=== PATIENT | male | born 1985 | race Hispanic/Latino ===

== ENCOUNTER 2020-04-03 08:52 | Outpatient (NON) | payer OTHER, SELFPAY ==
[2020-04-04 14:04] LABS: SARS-CoV-2 RNA PCR Positive
== END 2020-04-03 08:53 ==
LOC: ANHCOVIDDT 08:55
PROVIDERS: Visit Provider Family Medicine
DX: U07.1 COVID-19 (principal)
CPT/HCPCS: 87635; C9803; U0003

== ENCOUNTER 2021-12-19 08:54 | Emergency (ER) | payer BC, SELFPAY ==
--- NOTE | ~2021-12-19 | XR_ITS ---
EXAMINATION: XR chest 2V 12/19/2021 09:45 INDICATION: Right-sided chest pain. History of hypertension. Liver and colon metastases. PROCEDURE: 2 view chest COMPARISON: 03/14/2016 FINDINGS: The lungs are clear. The cardiomediastinal silhouette is within normal limits. There are no pleural effusions. There is no pneumothorax suspected. Port catheter tip in the SVC. Left basila r atelectasis. IMPRESSION: 1: Left basilar atelectasis. Reviewed, dictated and finalized at location A.
--- NOTE | ~2021-12-19 | CT_ITS ---
EXAMINATION: CTA chest PE abdomen pel DATE: 12/19/2021 11:29 INDICATION: Dyspnea. Right flank pain. TECHNIQUE: Computed tomography angiography (CTA) of the chest was performed with 100 mL Omnipaque-350 intravenous contrast timed to evaluate the pulmonary arteries. Coronal maximum intensity projection 3D-reconstructions were created by the technologist. Computed tomography (CT) of the abdomen and pelv is was performed with intravenous contrast. Automated exposure control and iterative reconstruction t echnique were employed. The dose-length product was 2068.64 mGy-cm. COMPARISON: PET/CT 01/06/2017 FINDINGS: CTA chest: The lungs demonstrate mild atelectasis. No pleural effusion. The heart size is normal. No pericardial effusion. There is no pulmonary embolus. There is mild thoracic spondylosis. There is a l eft subclavian port with tip at superior cavoatrial junction. There is mild thoracic spondylosis. CT abdomen and pelvis: There are approximately 3 masses in the liver. A mass in left hepatic lobe ext ends into the anterior chest wall. There are areas of hyperattenuation in the masses, likely changes of chemoembolization. There is a 10 x 12 mm mass abutting the anteroinferior pericardium that is cont iguous with a mass in left hepatic lobe. The spleen, pancreas, adrenal glands, and kidneys are normal . The gallbladder is absent. There is a ventral hernia containing nonobstructed small bowel. There is an anastomosis in the rectosigmoid. There are other staple lines in bowel. There is wall thickening of the hepatic flexure of the colon abutting the mass in left hepatic lobe. There are no dilated loop s of bowel. The appendix is not visualized. There is prominent fat in the inguinal canals that may be hernias. There are no pathologically enlarged lymph nodes. There is no free intraperitoneal fluid. T here is mild lumbar spondylosis. IMPRESSION: 1. No pulmonary embolus. 2. Liver masses with extension to the pericardium, anterior chest wall, and hepatic flexure of the co lisa, consistent with metastatic disease, worsened from 01/06/17. 3. Ventral hernia containing nonobstructed small bowel. Reviewed, dictated and finalized at location A. IMPRESSION: 1. No pulmonary embolus. 2. Liver masses with extension to the pericardium, anterior chest wall, and hep atic flexure of the colon, consistent with metastatic disease, worsened from . 3. Ventral hernia containing nonobstructed small bowel.
[2021-12-19 09:01] VITALS: BP 151/109; PULSE 78; RESP 20; TEMP 36.4; O2SAT 100
--- NOTE | 2021-12-19 09:15 | ED.BACK ---
HPI - Back Pain/Injury General Chief Complaint: Back Pain/Injury Stated Complaint: right flank pain Time Seen by Provider: 12/19/21 08:58 Source: RN notes reviewed History of Present Illness HPI Narrative: Patient presents emergency room from home for right flank pain. Patient states symptoms been ongoing for the past week and a half. The pain is located in the right mid back and radiates around into the abdomen pain described as aching in nature states is worse when he lays down flat. States he has mild pain at this time not taking medication for his pain he denies any fevers or chills chest pain or shortness of breath he denies any nausea vomiting diarrhea. Patient states the pain will radiate around into the right upper and mid abdomen and the right lower quadrant Related Data Allergies Allergy/AdvReac Type Severity Reaction Status Date / Time mercury (elemental) Allergy Mild Rash Verified 12/19/21 09:07 adhesive Allergy Unknown Rash Verified 12/19/21 09:07 empagliflozin AdvReac Intermediate headache Verified 12/19/21 09:07 [From Jardiance] Review of Systems Review of Systems: Gen.: Denies fevers or chills ENT: Denies congestion Respiratory: Denies shortness of breath or cough CV: Denies chest pain or palpitations G see HPI denies burning, urgency, frequency or hematuria Musculoskeletal: D reports right flank pain Neuro: Denies numbness, tingling, weakness or focal weakness Skin: Denies rash Except as documented, all other systems reviewed and negative PMFSH Past Medical History Medical History Benign reactive hypertension Colon cancer Diabetes mellitus with hyperglycemia Liver metastases Mixed hyperlipidemia Morbid exogenous obesity Surgical History Surgical History H/O partial resection of colon Family History Family History Grandparent Diabetes mellitus Carcinoma of colon Mother Family history of elevated blood lipids Patient's mother is in good health Father Patient's father is in good health Social History Social History Social History: Smoking status: Never smoker Second hand tobacco smoke exposure: No Alcohol intake: never Substance use: never Substance use type: does not use Gender identity (if verbalized by the patient): Male Sexual Orientation (if Verbalized by the Patient): Lesbian, Abraham, or Homosexual Exam Narrative: APPEARANCE: No acute distress, nontoxic, resting in bed EYES: EOMI HEENT: Normocephalic, atraumatic, OMM RESPIRATORY: No respiratory distress Clear to auscultation bilaterally with no rhonchi wheezing or rales. CARDIOVASCULAR: Regular rate and rhythm without murmurs rubs or gallops. ABDOMINAL: Soft, nontender, nondistended, no rebound or guarding MUSCULOSKELETAl: Moves all extremities. No clubbing, cyanosis or edema. Back: No midline thoracic or lumbar tenderness palpation temporal patient no right paravertebral muscles T12-L2 NEURO: Awake and alert. Following commands, speech normal, no focal deficits SKIN:: Warm, dry. No rashes lesions or abrasions PSYCHIATRIC: Normal affect/mood, Course Course Emergency Course: Patient had a CT scan from the end of November on his phone I reviewed those results with Dr. Posada results are unchanged today Discussed with patient results of workup and diagnosis. Discussed need for follow-up with primary care, proper use of medication, and reasons to return to the emergency department. Patient understands and agrees to current treatment plan Vital Signs Vital signs: Vital Signs Temperature 97.6 F 12/19/21 09:01 Pulse Rate 78 12/19/21 09:01 Respiratory Rate 20 12/19/21 09:01 Blood Pressure 151/109 H 12/19/21 09:01 Pulse Oximetry 100 12/19/21 09:01 Oxygen Delivery Room Air 12/19/21
[2021-12-19 09:39] LABS: Basophils Absolute Auto 0.1 K/mm3 (0.0-0.1); Basophils Percent Auto 1.8 % (0.2-1.2); Eosinophils Absolute Auto 0.2 K/mm3 (0-0.3); Eosinophils Percent Auto 4.7 % (0-4.4); Hematocrit 40.7 % (42.0-52.0); Hemoglobin 13.4 g/dL (14.0-18.0); Immature Granulocyte Absolute 0.02 K/mm3 (0.00-0.031); Immature Granulocyte Percent A 0.4 % (0-0.5); Lymphocytes Absolute Auto 1.16 K/mm3 (0.9-3.2); Lymphocytes Percent Auto 22.9 % (18.3-44.2); Mean Corpuscular HGB Conc 32.9 g/dl (32-36); Mean Corpuscular Hemoglobin 31.6 pg (26-34); Monocytes Absolute Auto 0.6 K/mm3 (0.1-0.6); Neutrophils Percent Auto 59.2 % (45.5-73.1); Platelet Count Result 174 k/mm3 (150-375); Red Blood Count 4.24 M/mm3 (4.6-6.20); Red Cell Distribution Width 14.6 % (11.5-14.5); White Blood Count 5.1 K/mm3 (4.5-10.0)
[2021-12-19 09:47] LABS: Alanine Aminotransferase 53 U/L (6-50); Alkaline Phosphatase 56 U/L (38-126); Anion Gap 9 mmol/L (8-16); Aspartate Amino Transferase 36 U/L (17-59); Bilirubin,Total 0.6 mg/dL (0.2-1.3); Blood Urea Nitrogen 14 mg/dL (9-20); Calcium 9.3 mg/dL (8.4-10.2); Carbon Dioxide 28 mmol/L (22-30); Chloride 101 mmol/L (98-107); Estimated CRCL calculation 142 ml/min; Estimated Glomerular Filt Rate > 60; Glucose 177 mg/dL (65-110); Lipase 147 U/L (23-300); Potassium 4.1 mmol/L (3.4-5.0); Sodium 138 mmol/L (137-145)
[2021-12-19 10:14] LABS: Prothrombin Time 13.2 Seconds (11.1-14.7)
[2021-12-19 10:15] LABS: Partial Thromboplastin Time 28.8 SECONDS (22.3-36.8)
[2021-12-19] MEDS: SODIUM CHLORIDE 0.9% IV 1,000 ML 999 ML IV CONT (10:18)
[2021-12-19] MEDS: KETOROLAC 30 MG/ML VIAL (*BKC) IV PUSH (10:18)
[2021-12-19 10:39] VITALS: BP 162/110; PULSE 65; RESP 18; O2SAT 100
[2021-12-19 10:40] LABS: Add Urine Microscopic? YES; Appearance Urine Clear (Clear); Bilirubin Urine 1+ (Negative); Blood Urine Negative (Negative); Color Urine Yellow (Yellow); Glucose Urine UA Negative (Negative); Ketones Urine Negative (Negative); Leukocyte Esterase Ur Negative LEU/UL (Negative); Nitrate Urine Negative (Negative); Protein Urine 1+ mg/dL (Negative); Specific Grav Ur >= 1.030 (1.001-1.035); pH Urine 5.5 (5.0-9.0)
[2021-12-19 10:46] LABS: Mucus Urine Few /lpf; RBC Urine 0-2 /hpf (0-2)
[2021-12-19 13:05] VITALS: BP 154/106; PULSE 81; RESP 20; O2SAT 100
== END 2021-12-19 13:07 | disposition home or self-care (01) ==
PROVIDERS: Emergency Provider Emergency Medicine; PCP Family Medicine
DX: M54.50 Low back pain, unspecified (principal); E11.9 Type 2 diabetes mellitus without complications; E78.5 Hyperlipidemia, unspecified; Z85.038 Personal history of other malignant neoplasm of large intestine; R16.0 Hepatomegaly, not elsewhere classified
CPT/HCPCS: 36415; 71046; 71275; 74177; 80053; 81001; 83690; 85025; 85610; 85730; 96361; 96374; 99284; J1885; J7030; Q9967

== ENCOUNTER 2022-01-30 00:04 | Inpatient (IN) | payer BC, SELFPAY ==
[2022-01-30] VITALS (19 sets, daily range): BP systolic 119–146; BP diastolic 88–109; PULSE 84–133; RESP 14–20; TEMP 36.5–36.9; O2SAT 93–100; BMI 30.1
--- NOTE | ~2022-01-30 | CT_ITS ---
EXAMINATION: CT abdomen pelvis w con DATE: 01/30/2022 05:58 INDICATION: Abdominal pain TECHNIQUE: Computed tomography (CT) of the abdomen and pelvis was performed with 100 mL Omnipaque-350 intravenous contrast. Automated exposure control and iterative reconstruction technique were employe d. The dose-length product was 1278.43 mGy-cm. COMPARISON: 12/19/2021 FINDINGS: Central venous catheter with distal tip at the superior cavoatrial junction. Lung bases are clear. He art size is normal. No pleural effusion. There is a hypoenhancing mass occupying the majority of the small lateral segment of the left hepatic lobe which invades the subxiphoid anterior chest wall, infe rior pericardium and the immediately adjacent hepatic flexure the colon. There is high attenuation ma terial scattered within the mass consistent with likely change of prior chemoembolization. There is a dditional high attenuation likely chemoembolization material within and along the periphery of an add itional 2.2 cm otherwise fluid attenuation mass in segment 5 of the liver. There has been interval in crease in size of 3 intervening hypoenhancing and likely metastatic masses with ill-defined margins l ocated in segment 4A and 4B of the liver. For reference the most posterior has increased from approxi mately 2.2 x 2.0 cm to currently measuring 3.0 x 2.5 cm. Decompressed gallbladder is normal. Tiny spl enic calcification consistent with old granulomatous disease. Pancreas, bilateral adrenal glands and kidneys are normal. There are 3 anastomotic suture lines along the stool filled colon. There are 2 ad ditional anastomotic suture lines along the small bowel. Again seen is herniation of a loop of small bowel into a moderate-sized ventral hernia. There is fluid filling but not frankly dilated small janessa l within and proximal to the ventral hernia. There is a transition point upon the small bowel exiting the hernia with the more distal small bowel decompressed. Bladder is normal. Increased fat within th e bilateral inguinal canals which could be related to body habitus or small inguinal hernias. No free intraperitoneal gas or fluid. No pathologically enlarged abdominal or pelvic lymphadenopathy. Mild t horacic and lumbar spondylosis. No suspicious lytic or blastic bone lesions. IMPRESSION: 1. Large ventral hernia containing a loop of fluid-filled small bowel with fluid filling the more pro ximal small bowel but decompressed bowel distal to the hernia. The fluid-filled bowel is however not frankly dilated. Pattern suggests either an early or partial small bowel obstruction. 2. Multiple hypoenhancing hepatic masses consistent with metastatic disease the largest filling the l ateral segment of the left hepatic lobe which demonstrates change of prior chemoembolization invades the anterior abdominal wall, also involving the pericardium and hepatic flexure the colon. There has been interval increase in size of 3 of the mass without change of chemoembolization consistent with p rogression of likely metastatic disease. Reviewed, dictated and finalized at location A. IMPRESSION: 1. Large ventral hernia containing a loop of fluid-filled small bowel with flui d filling the more proximal small bowel but decompressed bowel distal to the he rnia. The fluid-filled bowel is however not frankly dilated. Pattern suggests e ither an early or partial small bowel obstruction. 2. Multiple hypoenhancing hepatic masses consistent with metastatic disease the largest filling the lateral segment of the left hepatic lobe which demonstrate s change of prior chemoembolization invades the anterior abdominal wall, also i nvolving the pericardium and hepatic flexure the colon. There has been interval increase in size of 3 of the mass without change of chemoembolizati
--- NOTE | ~2022-01-30 | XR_ITS ---
XR abdomen NG/feed tube insert INDICATION: Evaluate NG tube position. TECHNIQUE: Limited KUB perform for evaluating NG tube . COMPARISON: 02/03/2022 FINDINGS: NG tube tip in the stomach. There are dilated small bowel loops, consistent with obstructio n.. IMPRESSION: 1: NG tube tip in the stomach. 2: Small bowel obstruction. Reviewed, dictated and finalized at location A.
--- NOTE | ~2022-01-30 | XR_ITS ---
EXAMINATION: XR sm bowel follow through WS DATE: 02/06/2022 14:38 INDICATION: Vomiting. TECHNIQUE: Oral contrast was administered, and a time course of radiographs of the abdomen was obtain ed. Fluoroscopy of the small bowel was not performed. Fluoroscopy exposure time was 0 minutes. The to maria m number of images was 6. COMPARISON: CT abdomen and pelvis 02/06/2022 FINDINGS: There is a catheter tip in right atrium. At 1 hour, all of the contrast remains in the stomach. There are multiple dilated loops of small bowel. The colon is decompressed. There is a small volume of sto ol in the colon. There is a surgical clip in right upper quadrant. IMPRESSION: 1. Gastric outlet obstruction. At 1 hour, all of the contrast remained in the stomach, and the exam w as terminated. 2. Dilated small bowel, consistent with small bowel obstruction. Reviewed, dictated and finalized at location A. IMPRESSION: 1. Gastric outlet obstruction. At 1 hour, all of the contrast remained in the s tomach, and the exam was terminated. 2. Dilated small bowel, consistent with small bowel obstruction.
--- NOTE | ~2022-01-30 | XR_ITS ---
EXAMINATION: XR abdomen NG/feed tube insert DATE: 01/30/2022 10:46 INDICATION: Gastric tube placement TECHNIQUE: A supine view of the abdomen and lower chest was obtained for evaluation of feeding tube placement. COMPARISON: CT dated 01/30/2022 FINDINGS: Nasogastric tube tip in proximal side port in the body of the stomach. Distal tip of a central venous catheter extends caudally from the superior vena cava into the high right atrium. Small amount of ga s scattered throughout the bowels with moderate amount of colonic stool. Lung bases are clear. Normal heart size. Cholecystectomy clips in the right upper quadrant. Mild thoracolumbar levocurvature. IMPRESSION: 1. Nasogastric tube in the stomach. Reviewed, dictated and finalized at location A.
--- NOTE | ~2022-01-30 | XR_ITS ---
. EXAMINATION: XR abdomen obstructive series DATE: 02/03/2022 09:13 INDICATION: Ventral incisional hernia. TECHNIQUE: Upright and supine views of the abdomen were obtained. COMPARISON: CT abdomen and pelvis 01/30/2022 FINDINGS: There are no dilated loops of bowel. There is a moderate volume of stool in the colon. No f ree intraperitoneal gas. There is a catheter tip in right atrium. There is a surgical clip in right u pper quadrant. IMPRESSION: 1. Nonobstructive bowel gas pattern. Reviewed, dictated and finalized at location A.
--- NOTE | ~2022-01-30 | CT_ITS ---
EXAMINATION: CT abdomen pelvis wo con DATE: 02/06/2022 08:46 INDICATION: Bowel obstruction TECHNIQUE: Computed tomography (CT) of the abdomen and pelvis was performed without intravenous contr ast. Automated exposure control and iterative reconstruction technique were employed. Exam dose: 123 8.00 mGy-cm total exam DLP. COMPARISON: 02/03/2022 obstructive series 01/30/2022 CT abdomen pelvis with IV contrast material FINDINGS: The lung bases are clear. Normal heart size. Catheter tip at upper right atrium. No pericar dial or pleural effusion. Surface nodularity of the liver suggests cirrhosis. Multiple hepatic masses including a large irregular left hepatic mass invading the anterior chest wal l are again noted. High density material within 2 of the masses is likely secondary to chemoembolizat ion. 10 mm and 6 mm soft tissue densities anterior to the liver may be metastases. Normal splenic size. No pancreatic mass lesion or pancreatic duct dilatation. Normal morphology of the adrenal glands. No renal mass lesion or urinary tract calculus or hydroureteronephrosis. The urinary bladder is unrem arkable. There is prostate enlargement and calcification. Small bilateral fat-containing inguinal hernias. There is a suture line at the distal sigmoid colon. Another suture line is noted in the descending co lisa. There is a midline ventral abdominal wall hernia containing small bowel. There is dilatation up to 4 cm diameter and multiple air-fluid levels of the small bowel proximal to the hernia and decompression of the small bowel distal to the cardiac, consistent with partial small bowel obstruction. No bowel wall thickening or pneumatosis or pneumoperitoneum is noted. No suspicious osteolytic or osteoblastic lesions. IMPRESSION: Midline ventral abdominal wall hernia with small bowel herniation and partial obstructio n, including proximal small bowel dilatation up to 4 cm diameter and multiple air-fluid levels Multiple hepatic masses Postoperative changes of small and large bowel Prostate enlargement and calcifications Small bilateral fat-containing inguinal hernias Reviewed, dictated and finalized at Location A. Reviewed, dictated and finalized at location B. IMPRESSION: Midline ventral abdominal wall hernia with small bowel herniation and partial obstruction, including proximal small bowel dilatation up to 4 cm d iameter and multiple air-fluid levels Multiple hepatic masses Postoperative changes of small and large bowel Prostate enlargement and calcifications Small bilateral fat-containing inguinal hernias
--- NOTE | ~2022-01-30 | XR_ITS ---
EXAMINATION: XR abdomen/kub 1V DATE: 02/02/2022 22:07 INDICATION: Vomiting. Abdominal pain. TECHNIQUE: A supine view of the abdomen on 2 radiographs was obtained. COMPARISON: CT abdomen and pelvis 01/30/2022 FINDINGS: There are no dilated loops of bowel. There is a moderate volume of stool in the colon. Ther e is a surgical clip in right upper quadrant. IMPRESSION: 1. Nonobstructive bowel gas pattern. Reviewed, dictated and finalized at location A.
--- NOTE | ~2022-01-30 | XR_ITS ---
EXAMINATION: XR abdomen/kub 1V DATE: 01/31/2022 06:46 INDICATION: Small bowel obstruction TECHNIQUE: A supine view of the abdomen on 2 radiographs was obtained. COMPARISON: 01/30/2022 FINDINGS: Nasogastric tube tip in proximal side port in the body of the stomach. Cholecystectomy clips in the r ight upper quadrant. Moderate amount of gas and stool in the colon. No dilated loops of gas-filled lowell wel to suggest obstruction. Lung bases are clear. IMPRESSION: 1. No dilated bowel to suggest obstruction. Reviewed, dictated and finalized at location A.
[2022-01-30] MEDS: SODIUM CHLORIDE 0.9% IV 1,000 ML 999 ML IV CONT (02:49)
[2022-01-30] MEDS: MORPHINE SULFATE (*CRX) 4 MG/ML INJ IV PUSH ×2 (02:49→05:10)
--- NOTE | 2022-01-30 02:49 | ED.GENADULT ---
HPI - General Adult General Chief complaint: Unspecified <Felton Schaefer MD - Last Filed: 01/30/22 06:44> Stated complaint: constipation for 5 days chemo patient <Felton Schaefer MD - Last Filed: 01/30/22 06:44> Time Seen by Provider: 01/30/22 02:14 <Felton Schaefer MD - Last Filed: 01/30/22 06:44> History of Present Illness HPI narrative: Patient 36-year-old gentleman who presents the emergency department with chief complaint of abdominal pain and constipation. Patient reports that he has colon cancer and has been treated with chemotherapy as well as surgery the patient states that he is on oxycodone for pain and reports that it he is gone several days without a bowel. Patient reports his last bowel movement was rather firm but does not extremely hard once he was able to get things started he was able to have a sizable bowel movement. Patient reports that he is on a stool softener patient denies fever denies chills states that he has had several episodes of vomiting and reports that he is concerned we will dehydrated. <Felton Schaefer MD - Last Filed: 01/30/22 06:44> Related Data Allergies/adverse reactions: Allergies Allergy/AdvReac Type Severity Reaction Status Date / Time mercury (elemental) Allergy Mild Rash Verified 01/01/22 08:29 adhesive Allergy Unknown Rash Verified 01/01/22 08:29 empagliflozin AdvReac Intermediate headache Verified 01/01/22 08:29 [From Jardiance] <Felton Schaefer MD - Last Filed: 01/30/22 06:44> Review of Systems Review of Systems: A 10 system review of systems was completed on the patient and is negative except for what is stated in the HPI. Nursing and ancillary documentation was reviewed. <Felton Schaefer MD - Last Filed: 01/30/22 06:44> PMFSH Past Medical History Medical History: Medical History Benign reactive hypertension Colon cancer Diabetes mellitus with hyperglycemia Liver metastases Mixed hyperlipidemia Morbid exogenous obesity <Felton Schaefer MD - Last Filed: 01/30/22 06:44> Surgical History Surgical History: Surgical History H/O partial resection of colon <Felton Schaefer MD - Last Filed: 01/30/22 06:44> Family History Family History: Family History Grandparent Diabetes mellitus Carcinoma of colon Mother Family history of elevated blood lipids Patient's mother is in good health Father Patient's father is in good health <Felton Schaefer MD - Last Filed: 01/30/22 06:44> Social History Social History: Social History Social History: Smoking status: Never smoker Second hand tobacco smoke exposure: No Alcohol intake: never Substance use: never Substance use type: does not use Gender identity (if verbalized by the patient): Male Sexual Orientation (if Verbalized by the Patient): Lesbian, Abraham, or Homosexual <Felton Schaefer MD - Last Filed: 01/30/22 06:44> Exam Narrative: GENERAL: Well-appearing, well-nourished, and in no acute distress. HEAD: Normocephalic, atraumatic. EYES: PERRLA and EOMI. ENT: Nares clear, no rhinorrhea or epistaxis. Mucous membranes moist. NECK: Supple. CHEST: Clear to auscultation. No respiratory distress. HEART: Regular rate and rhythm. No murmur heard. Normal peripheral pulses. ABDOMEN: Soft, diffusely tender to palpation, nondistended, normal active bowel sounds. EXTREMITIES: Normal range of motion. No edema. SKIN: Warm, dry, no rash. NEURO: No focal deficits. Alert and oriented x3. PSYCH: Normal mood and affect. <Felton Schaefer MD - Last Filed: 01/30/22 06:44> Course Consultations Consultation #1: D
[2022-01-30 03:20] LABS: Basophils Absolute Auto 0.1 K/mm3 (0.0-0.1); Basophils Percent Auto 0.5 % (0.2-1.2); Eosinophils Absolute Auto 0.1 K/mm3 (0-0.3); Eosinophils Percent Auto 1.3 % (0-4.4); Hematocrit 44.8 % (42.0-52.0); Hemoglobin 15.2 g/dL (14.0-18.0); Immature Granulocyte Absolute 0.03 K/mm3 (0.00-0.031); Immature Granulocyte Percent A 0.3 % (0-0.5); Lymphocytes Percent Auto 8.5 % (18.3-44.2); Mean Corpuscular HGB Conc 33.9 g/dl (32-36); Mean Corpuscular Hemoglobin 29.7 pg (26-34); Mean Corpuscular Volume 87.7 fl (80-100); Mean Platelet Volume 11.2 fl (7.4-10.4); Monocytes Absolute Auto 0.6 K/mm3 (0.1-0.6); Monocytes Percent Auto 6.5 % (2.6-8.5); Neutrophils Absolute Auto 7.8 K/mm3 (1.3-6.7); Neutrophils Percent Auto 82.9 % (45.5-73.1); Platelet Count Result 285 k/mm3 (150-375); Red Blood Count 5.11 M/mm3 (4.6-6.20); White Blood Count 9.4 K/mm3 (4.5-10.0)
[2022-01-30] MEDS: ONDANSETRON INJ 4 MG/2 ML VIAL IV PUSH (03:38)
[2022-01-30 03:44] LABS: Lactic Acid Reflex 1.4 mmol/L (0.7-2.0)
[2022-01-30 04:14] LABS: Appearance Urine Clear (Clear); Bilirubin Urine 2+ (Negative); Blood Urine Negative (Negative); Color Urine Yellow (Yellow); Glucose Urine UA Negative (Negative); Ketones Urine 2+ mg/dL (Negative); Leukocyte Esterase Ur Negative LEU/UL (Negative); Nitrate Urine Negative (Negative); Protein Urine 2+ mg/dL (Negative); Specific Grav Ur >= 1.030 (1.001-1.035); pH Urine 5.5 (5.0-9.0)
[2022-01-30 04:26] LABS: Bacteria Urine Trace /hpf; Mucus Urine Heavy /lpf; WBC Urine 0-3 /hpf
[2022-01-30 04:28] LABS: Add Urine Microscopic? YES
[2022-01-30 05:57] LABS: Estimated Glomerular Filt Rate > 60
[2022-01-30 06:00] LABS: Alanine Aminotransferase 37 U/L (6-50); Alkaline Phosphatase 101 U/L (38-126); Anion Gap 9 mmol/L (8-16); Aspartate Amino Transferase 34 U/L (17-59); Bilirubin,Total 0.8 mg/dL (0.2-1.3); Blood Urea Nitrogen 11 mg/dL (9-20); Calcium 9.6 mg/dL (8.4-10.2); Carbon Dioxide 27 mmol/L (22-30); Chloride 100 mmol/L (98-107); Estimated Glomerular Filt Rate > 60; Glucose 172 mg/dL (65-110); Potassium 4.4 mmol/L (3.4-5.0); Sodium 136 mmol/L (137-145)
--- NOTE | 2022-01-30 07:13 | PC.NURSE ---
BSSR TO GASTON FLORES
--- NOTE | 2022-01-30 07:18 | PC.NURSE ---
Report received from Jackelyn FLORES and care of pt assumed at this time.
--- NOTE | 2022-01-30 11:43 | PM.CNGS ---
Assessment and Plan Assessment and plan (1) Incisional hernia with obstruction: Code(s): K43.0 - Incisional hernia with obstruction, without gangrene Status: Acute Assessment and Plan: Large incisional hernia that is chronic for the patient. He has been asymptomatic up until this point. CT suggests partial or early small bowel obstruction secondary to the incisional hernia. The hernia is now soft and reducible. His abdominal exam is largely benign. The patient would be a high risk for any surgical intervention given his previous abdominal surgeries and metastatic disease. There is no indication for urgent surgical intervention at this time. Will continue with conservative treatment and monitor with serial abdominal exams. (2) Bowel obstruction: Code(s): K56.609 - Unspecified intestinal obstruction, unspecified as to partial versus complete obstruction Status: Acute Assessment and Plan: Continue NG tube decompression, bowel rest, IV fluids, and analgesics as needed for now. Will get a KUB tomorrow morning. (3) Colon cancer: Qualifiers: Colon location: overlapping sites Qualified Code(s): C18.8 - Malignant neoplasm of overlapping sites of colon Code(s): C18.9 - Malignant neoplasm of colon, unspecified Status: Acute Assessment and Plan: Follow-up with oncology as scheduled after discharge. (4) Liver metastases: Code(s): C78.7 - Secondary malignant neoplasm of liver and intrahepatic bile duct Status: Acute (5) Diabetes mellitus with hyperglycemia: Qualifiers: Diabetes mellitus custodial insulin use: with director of patient safety use Diabetes mellitus type: type 2 Qualified Code(s): E11.65 - Type 2 diabetes mellitus with hyperglycemia; Z79.4 - MCC (current) use of insulin Code(s): E11.65 - Type 2 diabetes mellitus with hyperglycemia Status: Acute Plan I have discussed the patient's case and plan of care with Dr. Jacobsen. Thank you for allowing us to see the patient in consultation and we will continue to follow along with you. History of Present Illness Consult details Consult date: 01/30/22 Reason for consult: other (Small-bowel obstruction) Requesting physician: Loc Hernandez MD Narrative: This is a 36-year-old man with a history of metastatic colon cancer initially diagnosed in 2016 who has undergone extensive treatment and multiple surgeries. He has had a colon resection as well as debulking surgeries and additional procedures for the metastasis. He receives chemotherapy in [place] and has reportedly been on a 2 month break from chemo. His last treatment was November 19, 2021. He is supposed to follow up at the end of this month to discuss restarting chemotherapy. He additionally has an incisional hernia from his initial surgery that has been present for a few years. This has been asymptomatic. Yesterday, he developed cramping lower abdominal pain. This pain continued throughout the day and he developed nausea and vomiting. He began passing gas and felt that his abdominal pain improved. Overnight his pain worsened and he began vomiting again. He then presented to the ER for further evaluation. CT scan of abdomen and pelvis showed a large ventral hernia containing a loop of fluid-filled small bowel possibly suggesting either an early or partial small bowel obstruction. Additionally seen is the metastasis in the liver, anterior abdominal wall, pericardium, and hepatic flexure of the colon. Labs were unremarkable. Our service has been called by the ED physician for a partial small bowel obstruction with a large ventral hernia. A NG tube has been placed. The patient is now seen in the ER. He reports flatus today and his abdominal pain has improved. He denies any pain at the hernia at this time. His nausea has improved. Denies a history of bowel obstructions in the past. Review of Systems Review of Systems: All systems reviewed & ar
--- NOTE | 2022-01-30 11:51 | ADMGEN ---
This patient, Anjel Grijalva, was admitted to Medical Room 250-01. Patient/family oriented to hospital policies and general routines including ID bracelet, bed and alarms, visiting hours, pain management, procedures, bathroom and other care routines, personal items, smoking policy, room service/diet, and visiting hours. Information on how to activate the Rapid Response Team has been discussed. Patient/Family are encouraged to report perceived risks to care and to ask questions if they do not understand what they are told or what they should do.
[2022-01-30] MEDS: SODIUM CHLORIDE 0.9% IV 1,000 ML 150 ML IV CONT ×2 (12:22→20:19)
--- NOTE | 2022-01-30 14:11 | PM.IMHP ---
H&P: HPI History of Present Illness Date/Time: 01/30/22 14:11 Chief Complaint: Constipation for 5 days with abdominal pain. Narrative: This is a 36-year-old male patient who has a history of colon cancer status post colectomy and chemotherapy. His last chemotherapy was in November. He is currently taking a break from his chemotherapy. The patient stated that he had a hard stool 5 days ago. He has made several attempts to have a bowel movement also use stool softeners without any results. His parents were here visiting from [facility] and he did not want to come to the hospital any sooner as they were visiting. His parents are leaving on a plane today. The patient has been taking oxycodone at home for pain which further complicates his situation. Patient had several episodes of vomiting and came to the ER because he was concerned about being dehydrated. The patient has been sleeping in a recliner as he is not able to lay flat due to the pain. CT of the abdomen was read as the following?Large ventral hernia containing a loop of fluid-filled small bowel with fluid filling the more proximal small bowel but decompressed bowel distal to the hernia. The fluid-filled bowel is however not frankly dilated. Pattern suggests either an early or partial small bowel obstruction. 2. Multiple hypoenhancing hepatic masses consistent with metastatic disease the largest filling the lateral segment of the left hepatic lobe which demonstrates change of prior chemoembolization invades the anterior abdominal wall, also involving the pericardium and hepatic flexure the colon. There has been interval increase in size of 3 of the mass without change of chemoembolization consistent with progression of likely metastatic disease. NG tube was placed via the right nare.. Abdominal x-ray was read as NG tube in the stomach. The patient was started on IV fluids, Zofran, and morphine. Surgery has been consulted they have already seen the patient. The patient is being admitted to inpatient status on 01/30/2022. Review of Systems Review of Systems: See HPI All systems reviewed & are unremarkable except as noted in HPI and below Constitutional: Constitutional: Reports as per HPI and Reports no additional constitutional complaints Eyes: Eyes: Reports as per HPI and Reports no additional eye complaints ENT: Reports system reviewed and no additional complaints, except as documented and Reports Normal hearing present Cardiovascular: Cardiovascular: Reports no additional cardiovascular complaints Respiratory: Respiratory: Reports no additional respiratory complaints and Reports no additional respiratory complaints Gastrointestinal: Gastrointestinal: Reports as per HPI and Reports no additional gastrointestinal complaints Musculoskeletal: Musculoskeletal: Reports no additional musculoskeletal complaints Integumentary/Breasts: Skin/Breast: Reports system reviewed and no additional complaints, except as docu and Reports as per HPI Neurologic: Reports system reviewed and no additional complaints, except as documented, Reports as per HPI and Reports Normal hearing present Psychiatric: Psychiatric: Reports no additional psychiatric complaints and Reports as per HPI Endocrine: Endocrine: Reports no additional endocrine complaints Hematologic/Lymphatic: Hematologic/Lymphatic: Reports no additional hematologic/lymphatic complaints Allergic/Immunologic: Allergic/Immunologic: Reports no additional allergic/immunologic complaints [facility] Past Medical History Medical History (Updated 01/30/22 @ 14:29 by Yesenia Calabrese NP) Benign reactive hypertension Candidiasis of genitalia Colon cancer Metastatic colon cancer with metastasis to the liver, anterior abdominal wall, pericardium, and hepatic flexure of the colon. Diabetes mellitus with hyperglycemia HTN (hypertension), malignant Liver metastases Mixed hyperlipidemia Morbid exogenous obesity Port-A-Cath in place Surgical History Kaur
[2022-01-30 17:58] LABS: Glucose Point of Care 144 mg/dl (65-105)
[2022-01-30] MEDS: HYDROmorphone HCL INJ (*CRX) 1 MG/ML SYR 0.5 MG IV PUSH (18:04)
[2022-01-30] MEDS: hydrALAZINE HCL 20 MG/ML VIAL 10 MG IV PUSH (18:06)
--- NOTE | 2022-01-30 18:56 | PDONCCN ---
HPI - Date of Consult Date/Time: 01/30/22 18:56 Requesting Physician: Vaishali Samuel DO Primary Care Provider: Fawn Reina MD - Consult Narrative Reason for consult: Metastatic colon cancer Narrative: Anjel Grijalva is a 36 year old male with history of metastatic colon cancer diagnosed in 2016 status post colon resection and then 6 months of adjuvant chemotherapy. She was initially treated by Dr. Carias. Patient then moved to [place] area for treatment. Patient developed recurrent disease and had another resection and partial liver resection performed in [place]. He also went under the clinical trial. Currently he is on chemotherapy with Irinotecan in the last treatment was in November 19. He was given 2 months of chemo holiday. He now came into the hospital with abdominal pain and constipation as he has been taking narcotics. CT abdomen and pelvis showed multiple liver metastasis with fluid-filled bowel suggested early or partial bowel obstruction. He is now passing gas. He is looking slightly more comfortable now. Review of Systems - Review of Systems All systems reviewed & are unremarkable except as noted in HPI and bel - Neurologic Reports system reviewed and no additional complaints, except as documented, Reports hearing normal, Denies focal weakness, Denies numbness PMFSH Medical History: Medical History (Last Updated 01/30/22 @ 14:29 by Yesenia Calabrese NP) Benign reactive hypertension Candidiasis of genitalia Colon cancer Metastatic colon cancer with metastasis to the liver, anterior abdominal wall, pericardium, and hepatic flexure of the colon. Diabetes mellitus with hyperglycemia HTN (hypertension), malignant Liver metastases Mixed hyperlipidemia Morbid exogenous obesity Port-A-Cath in place Surgical History: Surgical History (Last Updated 01/30/22 @ 14:18 by Yesenia Calabrese NP) H/O partial resection of colon History of abdominal surgery Multiple surgeries for treatment of his metastatic colon cancer with some debulking surgeries and additional procedures for his liver metastasis. History of appendectomy History of tonsillectomy Family History: Family History (Last Reviewed 01/30/22 @ 14:17 by Yesenia Calabrese NP) Grandparent Diabetes mellitus Carcinoma of colon Mother Family history of elevated blood lipids Patient's mother is in good health Father Patient's father is in good health - Social History Social History: Social History (Last Updated 01/30/22 @ 14:41 by Yesenia Calabrese NP) Gender Identity: Gender identity (if verbalized by the patient): Male Sexual Orientation: Sexual Orientation (if Verbalized by the Patient): Lesbian, Abraham, or Homosexu Alcohol Use: Alcohol intake: never Substance Use: Substance use: never Substance use type: does not use Others: Spiritual care concerns: No Smoking Status: Smoking status: Never smoker Second hand tobacco smoke exposure: No Exam - Vital Signs Vital Signs - 24 hr 01/30/22 00:25 01/30/22 01:51 01/30/22 02:54 Temperature Pulse Rate 120 H 133 H Respiratory Rate 18 17 Blood Pressure 143/109 H 138/100 H Pulse Oximetry 97 99 97 Oxygen Delivery Room Air 01/30/22 03:00 01/30/22 03:15 01/30/22 03:16 Temperature Pulse Rate Respiratory Rate Blood Pressure 129/97 H Pulse Oximetry 96 97 93 Oxygen Delivery 01/30/22 03:30 01/30/22 03:32 01/30/22 03:41 Temperature Pulse Rate Respiratory Rate Blood Pressure 133/102 H 131/94 H Pulse Oximetry 97 99 94 Oxygen Delivery 01/30/22 03:45 01/30/22 04:00 01/30/22 04:02 Temperature Pulse Rate 113 H Respiratory Rate 20 Blood Pressure 119/93 H Pulse Oximetry 95 97 96 Oxygen Delivery 01/30/22 07:18 01/30/22 10:54 01/30/22 13:41 Temperature 36.9 C Pulse Rate 93 97 84 Respiratory Rate 16 14 16 Blood Pressure 134/98 H 136/101 H 146/102 H Pulse Oxi
[2022-01-30 19:44] LABS: Hemoglobin 13.5 g/dL (14.0-18.0)
[2022-01-30] MEDS: PANTOPRAZOLE SODIUM IV 40 MG VIAL IV PUSH (20:33)
[2022-01-30 22:24] LABS: Glucose Point of Care 144 mg/dl (65-105)
[2022-01-31 00:17] LABS: Hematocrit 39.9 % (42.0-52.0); Hemoglobin 13.2 g/dL (14.0-18.0)
[2022-01-31 00:45] LABS: Glucose Point of Care 113 mg/dl (65-105)
[2022-01-31] MEDS: SODIUM CHLORIDE 0.9% IV 1,000 ML 150 ML IV CONT ×2 (03:49→11:05)
[2022-01-31 03:56] VITALS: BP 146/95; PULSE 85; RESP 17; TEMP 36.9; O2SAT 100
[2022-01-31 05:33] LABS: Glucose Point of Care 99 mg/dl (65-105)
--- NOTE | 2022-01-31 06:06 | PC.NURSE ---
0600 CALLED CONSULT TO [facility] FOR COFFEE GROUND EMESIS IN NG TUBE.
[2022-01-31 06:11] LABS: Basophils Percent Auto 0.4 % (0.2-1.2); Eosinophils Absolute Auto 0.2 K/mm3 (0-0.3); Eosinophils Percent Auto 2.8 % (0-4.4); Hematocrit 39.7 % (42.0-52.0); Hemoglobin 12.8 g/dL (14.0-18.0); Immature Granulocyte Absolute 0.01 K/mm3 (0.00-0.031); Immature Granulocyte Percent A 0.2 % (0-0.5); Lymphocytes Absolute Auto 0.87 K/mm3 (0.9-3.2); Lymphocytes Percent Auto 15.5 % (18.3-44.2); Mean Corpuscular HGB Conc 32.2 g/dl (32-36); Mean Platelet Volume 10.2 fl (7.4-10.4); Monocytes Absolute Auto 0.6 K/mm3 (0.1-0.6); Monocytes Percent Auto 10.1 % (2.6-8.5); Platelet Count Result 187 k/mm3 (150-375); Red Blood Count 4.41 M/mm3 (4.6-6.20); Red Cell Distribution Width 12.9 % (11.5-14.5); White Blood Count 5.6 K/mm3 (4.5-10.0)
[2022-01-31 06:22] LABS: Lactic Acid Reflex 0.9 mmol/L (0.7-2.0)
[2022-01-31 06:27] LABS: Alanine Aminotransferase 30 U/L (6-50); Albumin Level 3.5 g/dL (3.5-5.1); Alkaline Phosphatase 90 U/L (38-126); Anion Gap 9 mmol/L (8-16); Aspartate Amino Transferase 30 U/L (17-59); Bilirubin,Total 0.8 mg/dL (0.2-1.3); Blood Urea Nitrogen 9 mg/dL (9-20); Calcium 9.2 mg/dL (8.4-10.2); Carbon Dioxide 26 mmol/L (22-30); Chloride 100 mmol/L (98-107); Estimated CRCL calculation 156 ml/min; Estimated Glomerular Filt Rate > 60; Glucose 120 mg/dL (65-110); Lactate Dehydrogenase 263 U/L (120-246); Lipase 56 U/L (23-300); Magnesium 1.9 mg/dL (1.6-2.3); Potassium 3.9 mmol/L (3.4-5.0); Sodium 135 mmol/L (137-145)
[2022-01-31] MEDS: HYDROmorphone HCL INJ (*CRX) 1 MG/ML SYR 0.5 MG IV PUSH ×2 (06:40→11:25)
[2022-01-31 07:15] LABS: Thyroid Stimulating Hormone Reflex 0.711 uIU/mL (0.465-4.68)
--- NOTE | 2022-01-31 08:03 | PM.PNGS ---
Progress Note: A&P Assessment and Plan (1) Incisional hernia with obstruction: Code(s): K43.0 - Incisional hernia with obstruction, without gangrene Status: Acute Assessment and Plan: exam benign, hernia reducible, +bowel fxn, will clamp NG and hopefully remove later today, ADAT once NG out, encourage OOB/IS Subjective Subjective Date/Time Seen: 01/31/22 08:04 feels pretty good, having some bowel fxn, no pain, no N/V Review of Systems Review of Systems: All systems reviewed & are unremarkable except as noted in HPI and below Exam Const: General: cooperative, comfortable and no acute distress Resp: Auscultation: clear to auscultation bilaterally Cardio: Rate: regular rate Rhythm: regular rhythm GI: Inspection: normal to inspection, non-distended and incision GI Palp: Yes abdominal tenderness, Yes Soft to palpation, Yes Tenderness to palpation present (GI), No Guarding due to palpation present (GI) and No Rigid due to palpation Other: large VH - reducible, soft Objective Data Vital Signs Vital Signs: Vital Signs - 24 hr 01/30/22 10:54 01/30/22 13:41 01/30/22 18:01 Temperature 36.9 C Pulse Rate 97 84 93 Respiratory Rate 14 16 Blood Pressure 136/101 H 146/102 H 145/96 H Pulse Oximetry 98 100 Oxygen Delivery 01/30/22 18:53 01/30/22 19:52 01/30/22 20:00 Temperature 36.6 C 36.5 C Pulse Rate 104 H 101 H Respiratory Rate 16 17 Blood Pressure 146/88 H 130/93 H Pulse Oximetry 100 100 Oxygen Delivery Room Air 01/30/22 23:24 01/31/22 03:56 Temperature 36.5 C 36.9 C Pulse Rate 85 85 Respiratory Rate 17 17 Blood Pressure 144/89 H 146/95 H Pulse Oximetry 100 100 Oxygen Delivery Intake/Output Intake/Output: Intake & Output 01/28/22 01/29/22 01/30/22 01/31/22 23:59 23:59 23:59 23:59 Intake Total 2100 1100 Output Total 550 550 Balance 1550 550 Meds/Results Medications: Active Medications Generic Name Dose Route Start Last Admin Trade Name Freq PRN Reason Stop Dose Admin Dextrose 12.5 gm 01/30/22 14:31 Dextrose 50% 25 Gm/50 Ml Syringe IV PUSH PRN PRN Hypoglycemia Protocol Glucagon 1 mg 01/30/22 14:31 Glucagon For Inj 1 Mg Vial IM PRN PRN Hypoglycemia Protocol Glucose 15 gm 01/30/22 14:31 Glucose Oral Gel 15 Gm Of Glucse In 37.5 Gm Tube PO PRN PRN Hypoglycemia Protocol Hydralazine HCl 10 mg 01/30/22 14:36 01/30/22 18:06 Hydralazine Hcl 20 Mg/Ml Vial IV PUSH 10 mg Q8H PRN Administration Blood Pressure - High Hydromorphone HCl 0.5 mg 01/30/22 10:41 01/31/22 06:40 Hydromorphone Hcl Inj (*Crx) 1 Mg/Ml Syr IV PUSH 0.5 mg Q4H PRN Administration Pain Rated 7-10 Acetaminophen 1,000 mg in 100 mls @ 400 mls/hr 01/30/22 10:41 01/31/22 04:10 Ofirmev 1,000 Mg Ivpb IVPB 01/31/22 10:40 Infused Q6H PRN Infusion Mild Pain (1-3) or Fever Sodium Chloride 1,000 mls @ 150 mls/hr 01/30/22 10:45 01/31/22 03:49 Normal Saline Iv IV CONT 150 mls/hr .Q6H40M IRLANDA Administration Dextrose 1,000 mls @ 100 mls/hr 01/30/22 14:31 Dextrose 5% 1,000 Ml IVPB PRN PRN Hypoglycemia Protocol Insulin Aspart 2 - 5 units 01/30/22 18:00 01/31/22 05:29 Insulin Aspart (*Bkc) 100 Units/Ml SUB-Q Not Given Q6HR [facility] Protocol Ondansetron HCl 4 mg 01/30/22 18:35 Ondansetron Inj 4 Mg/2 Ml Vial IV PUSH Q4H PRN Nausea And Vomiting Pantoprazole Sodium 40 mg 01/30/22 21:00 01/30/22 20:33 Pantoprazole Sodium Iv 40 Mg Vial IV PUSH 40 mg Q12HR IRLANDA Administration Phenol 1 spray 01/30/22 14:10 Phenol/Sod Pheno [place] (*Bkc) MUCOUS MEM PRN PRN Sore Throat Radiology Results: ITS Impressions Abdomen/Pelvis CT 01/30/22 06:52 IMPRESSION: 1. Large ventral hernia containing a loop of fluid-filled small bowel with fluid filling the more proximal small bowel but decompressed bowel distal to the h
[2022-01-31 08:19] LABS: Glucose Point of Care 116 mg/dl (65-105)
[2022-01-31] MEDS: PANTOPRAZOLE SODIUM IV 40 MG VIAL IV PUSH ×2 (08:37→20:51)
[2022-01-31 10:08] VITALS: BP 137/98; PULSE 104; RESP 20; TEMP 36.4; O2SAT 99
[2022-01-31] MEDS: ONDANSETRON INJ 4 MG/2 ML VIAL IV PUSH ×3 (11:33→23:05)
[2022-01-31 12:06] LABS: Hematocrit 38.3 % (42.0-52.0); Hemoglobin 12.5 g/dL (14.0-18.0)
[2022-01-31 12:32] LABS: Glucose Point of Care 119 mg/dl (65-105)
[2022-01-31 13:05] LABS: Hemoglobin A1C 7.3 % (<5.7)
[2022-01-31 14:22] VITALS: BP 135/95; PULSE 84; RESP 16; TEMP 36.8; O2SAT 100
--- NOTE | 2022-01-31 15:30 | PM.IMPN ---
Progress Note: A&P Assessment and Plan (1) Bowel obstruction: Code(s): K56.609 - Unspecified intestinal obstruction, unspecified as to partial versus complete obstruction Status: Acute Assessment and Plan: patient presented with abdominal pain and no bowel movement for [address] demonstrated large ventral hernia containing loop of fluid-filled small bowel suggestive of early or partial SBO appreciate general surgery consultation NG tube has been clamped NG tube to be removed and trial clear liquids supportive care. continue with gentle IV fluids until better tolerating diet (2) Colon cancer metastasized to liver: Code(s): C18.9 - Malignant neoplasm of colon, unspecified; C78.7 - Secondary malignant neoplasm of liver and intrahepatic bile duct Status: Acute Assessment and Plan: patient is managed by at cancer treatment center in [place] recently completed a round of chemotherapy on 11/19. Currently on 2 month chemo holiday follow-up appointment scheduled in 2 weeks patient has been seen by Oncology year. Recommended patient be discharged with disc of CT scan to bring to his oncologist at his next appointment (3) Diabetes mellitus with hyperglycemia: Qualifiers: Diabetes mellitus type: type 2 Diabetes mellitus adjunct faculty for medical terminology insulin use: with adjunct faculty for medical terminology use Qualified Code(s): E11.65 - Type 2 diabetes mellitus with hyperglycemia; Z79.4 - long term care administrator (current) use of insulin Code(s): E11.65 - Type 2 diabetes mellitus with hyperglycemia Status: Acute Assessment and Plan: A1c is 7.3 blood sugars well controlled this admission continue Accu-Cheks, sliding scale insulin, hypoglycemic protocol (4) HTN (hypertension), malignant: Code(s): I10 - Essential (primary) hypertension Status: Acute Assessment and Plan: blood pressures have been reasonably controlled. Last BP 137/98 continue home lisinopril-hydrochlorothiazide and metoprolol succinate Subjective Date/time seen: 01/31/22 15:30 Interval history: date of service: 01/31/2022 Anjel Grijalva is a 36-year-old male with a history of colon cancer with liver metastases s/p colectomy and chemotherapy (currently on chemo holiday for 2 months), poorly controlled type 2 diabetes mellitus, hyperlipidemia who is seen in follow up for bowel obstruction. patient states he is feeling better today. He does endorse abdominal cramping but states his bloating has resolved. He describes right upper quadrant discomfort which has been a persistent issue for many months and he believes is related to complications from chemotherapy. This pain comes and goes and occasionally makes him short of breath if it is severe. At rest he denies shortness of breath. He has no chest pain. He denies nausea or vomiting. He is passing flatus but no bowel movement. He denies dysuria. Review of Systems Review of Systems: All systems reviewed & are unremarkable except as noted in HPI and below Exam Narrative: General: Well-nourished, well-appearing 36-year-old male, sitting up in bed, comfortable, NARD Neuro: awake, alert and oriented x4, speech clear, no focal neuro deficits noted HEENMT: normocephalic, atraumatic, EOMI, sclerae anicteric Respiratory: clear to auscultation bilaterally, nonlabored breathing Cardio: regular rate, regular rhythm with S1-S2 Abdomen: mildly distended, normoactive bowel sounds, soft, soft hernia noted, midline abdominal incision, NG tube is clamped with dark brown output in 2 Extremities: no edema, erythema, or tenderness to palpation, DP pulses 2+ bilaterally Skin: no rashes or lesions, warm and dry Psych: appropriate mood and affect, judgment and insight intact Objective Data Vital Signs Vital Signs: Vital Signs - 24 hr 01/30/22 18:01 01/30/22 18:53 01/30/22 19:52 Temperature 97.8 F 97.7 F Pulse Rate 93 104 H 101 H Respiratory Rate
[2022-01-31] MEDS: MORPHINE SULFATE (*CRX) 2 MG/ML INJ IV PUSH ×2 (17:17→23:07)
[2022-01-31 17:26] LABS: Glucose Point of Care 129 mg/dl (65-105)
[2022-01-31] MEDS: SODIUM CHLORIDE 0.9% IV 1,000 ML 85 ML IV CONT (18:09)
[2022-01-31 18:13] VITALS: BP 137/96; PULSE 81; RESP 20; TEMP 36.7; O2SAT 100
[2022-01-31 19:57] VITALS: BP 144/96; PULSE 82; RESP 17; TEMP 36.9; O2SAT 100
[2022-01-31] MEDS: GABAPENTIN 100 MG CAPSULE PO (20:51)
[2022-01-31] MEDS: HYDROcodone/acetaminophen (*CRX) 5-325 MG TABLET 1 TAB PO (20:54)
[2022-01-31 23:04] VITALS: BP 150/95; PULSE 82; RESP 18; TEMP 36.8; O2SAT 100
[2022-01-31 23:16] LABS: Glucose Point of Care 108 mg/dl (65-105)
[2022-02-01] VITALS (7 sets, daily range): BP systolic 135–141; BP diastolic 87–94; PULSE 70–88; RESP 18–20; TEMP 36.6–37.1; O2SAT 99–100
[2022-02-01] MEDS: MORPHINE SULFATE (*CRX) 2 MG/ML INJ IV PUSH ×3 (03:59→12:47)
[2022-02-01] MEDS: ONDANSETRON INJ 4 MG/2 ML VIAL IV PUSH (03:59)
[2022-02-01 05:46] LABS: Hematocrit 39.3 % (42.0-52.0); Hemoglobin 12.8 g/dL (14.0-18.0); Mean Corpuscular HGB Conc 32.6 g/dl (32-36); Mean Corpuscular Hemoglobin 29.2 pg (26-34); Mean Corpuscular Volume 89.7 fl (80-100); Mean Platelet Volume 10.1 fl (7.4-10.4); Platelet Count Result 178 k/mm3 (150-375); Red Blood Count 4.38 M/mm3 (4.6-6.20); Red Cell Distribution Width 12.8 % (11.5-14.5)
[2022-02-01] MEDS: SODIUM CHLORIDE 0.9% IV 1,000 ML 85 ML IV CONT (05:47)
[2022-02-01 05:52] LABS: Glucose Point of Care 96 mg/dl (65-105)
[2022-02-01 06:02] LABS: Alanine Aminotransferase 27 U/L (6-50); Albumin Level 3.8 g/dL (3.5-5.1); Alkaline Phosphatase 84 U/L (38-126); Anion Gap 12 mmol/L (8-16); Aspartate Amino Transferase 30 U/L (17-59); Bilirubin,Total 0.8 mg/dL (0.2-1.3); Blood Urea Nitrogen 6 mg/dL (9-20); Calcium 8.9 mg/dL (8.4-10.2); Carbon Dioxide 24 mmol/L (22-30); Chloride 97 mmol/L (98-107); Estimated CRCL calculation 156 ml/min; Estimated Glomerular Filt Rate > 60; Glucose 105 mg/dL (65-110); Potassium 3.6 mmol/L (3.4-5.0); Sodium 133 mmol/L (137-145)
[2022-02-01] MEDS: METOPROLOL SUCCINATE EXT REL 50 MG TABCR PO (08:27)
[2022-02-01] MEDS: lisinopriL 10 MG TABLET PO (08:28)
[2022-02-01] MEDS: PANTOPRAZOLE SODIUM IV 40 MG VIAL IV PUSH (08:28)
[2022-02-01] MEDS: hydroCHLOROthiazide 12.5 MG CAPSULE PO (08:29)
--- NOTE | 2022-02-01 11:16 | PM.IMPN ---
Progress Note: A&P Assessment and Plan (1) Bowel obstruction: Code(s): K56.609 - Unspecified intestinal obstruction, unspecified as to partial versus complete obstruction Status: Acute Assessment and Plan: patient presented with abdominal pain and no bowel movement for [address] demonstrated large ventral hernia containing loop of fluid-filled small bowel suggestive of early or partial SBO appreciate general surgery consultation NG tube discontinued on 01/31 supportive care. continue clear liquid diet. Advance as tolerated per general surgery recommendations will discontinue IV fluids as patient is tolerating PO intake and has been adequately hydrated. (2) Colon cancer metastasized to liver: Code(s): C18.9 - Malignant neoplasm of colon, unspecified; C78.7 - Secondary malignant neoplasm of liver and intrahepatic bile duct Status: Acute Assessment and Plan: patient is managed by [facility]. Kw[facility] [place] recently completed a round of chemotherapy on 11/19. Currently on 2 month chemo holiday follow-up appointment scheduled in 2 weeks patient has been seen by Oncology here (Dr. Bennett). 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 Last BP 140/89 continue home lisinopril-hydrochlorothiazide and metoprolol succinate Subjective Date/time seen: 02/01/22 11:16 Interval history: date of service: 02/01/2022 Anjel Grijalva is a 36-year-old male with a history of colon cancer with liver metastases s/p colectomy and chemotherapy (currently on chemo holiday for 2 months), poorly controlled type 2 diabetes mellitus, hyperlipidemia who is seen in follow up for bowel obstruction. He is feeling okay today. He continues to complain of right flank and right upper quadrant pain ( chronic issue secondary to chemotherapy). states his pain was about 5/10 this morning but improved to 2/10 after pain medications. Denies abdominal pain. He is tolerating clear liquids without difficulty. No nausea or vomiting. He is passing flatus but has not had a bowel movement. He denies fever or chills, dizziness, lightheadedness, weakness, shortness breath, cough, chest pain. Review of Systems Review of Systems: All systems reviewed & are unremarkable except as noted in HPI and below Exam Narrative: General: Well-nourished, well-appearing 36-year-old male, sitting up in bed, comfortable, NARD Neuro: awake, alert and oriented x4, speech clear, no focal neuro deficits noted HEENMT: normocephalic, atraumatic, EOMI, sclerae anicteric Respiratory: clear to auscultation bilaterally, nonlabored breathing Cardio: regular rate, regular rhythm with S1-S2 Abdomen: mildly distended, hypoactive bowel sounds, soft, soft ventral hernia noted, midline abdominal incision Extremities: no edema, erythema, or tenderness to palpation, DP pulses 2+ bilaterally Skin: no rashes or lesions, warm and dry Psych: appropriate mood and affect, judgment and insight intact Objective Data Vital Signs Vital Signs: Vital Signs - 24 hr 01/31/22 14:22 01/31/22 18:13 01/31/22 19:57 Temperature 98.2 F 98.0 F 98.4 F Pulse Rate 84
[2022-02-01 12:17] LABS: Glucose Point of Care 98 mg/dl (65-105)
--- NOTE | 2022-02-01 12:42 | PM.PNGS ---
Progress Note: A&P Assessment and Plan (1) Incisional hernia with obstruction: Code(s): K43.0 - Incisional hernia with obstruction, without gangrene Status: Acute Assessment and Plan: exam benign, hernia reducible, +bowel fxn, Tolerating clears overnight will ADAT, encourage OOB and walking will add a regimen of MiraLax and Metamucil to help promote good bowel function while taking oxycodone at home in his palliative situation. Subjective Subjective Date/Time Seen: 02/01/22 12:42 Patient reports: no new complaints, tolerating liquids well, flatus and bowel movement Interval history: Denies nausea or vomiting. NG was removed late yesterday. Review of Systems Review of Systems: All systems reviewed & are unremarkable except as noted in HPI and below Constitutional: Constitutional: Reports as per HPI, Denies chills and Denies fever(s) Cardiovascular: Cardiovascular: Denies chest pain and Denies dyspnea Respiratory: Respiratory: Reports no additional respiratory complaints and Denies dyspnea Gastrointestinal: Gastrointestinal: Reports as per HPI and Denies bloating Musculoskeletal: Musculoskeletal: Reports no additional musculoskeletal complaints Neurologic: Denies memory loss Psychiatric: Psychiatric: Denies anxiety and Denies memory loss Exam Const: General: cooperative, comfortable and no acute distress Resp: Effort & Inspection: normal respiratory effort and able to speak in complete sentences GI: Inspection: normal to inspection, non-distended and incision GI Palp: Yes Soft to palpation, No Guarding due to palpation present (GI) and No Rigid due to palpation Other: large VH - reducible, soft Objective Data Vital Signs Vital Signs: Vital Signs - 24 hr 01/31/22 14:22 01/31/22 18:13 01/31/22 19:57 Temperature 36.8 C 36.7 C 36.9 C Pulse Rate 84 81 82 Respiratory Rate 16 20 17 Blood Pressure 135/95 H 137/96 H 144/96 H Pulse Oximetry 100 100 100 Oxygen Delivery 01/31/22 20:55 01/31/22 23:04 02/01/22 03:51 Temperature 36.8 C 36.7 C Pulse Rate 82 70 Respiratory Rate 18 18 Blood Pressure 150/95 H 138/87 Pulse Oximetry 100 99 Oxygen Delivery Room Air 02/01/22 08:00 02/01/22 08:27 02/01/22 08:29 Temperature 36.9 C Pulse Rate 88 81 Respiratory Rate 18 18 Blood Pressure 140/89 Pulse Oximetry 99 99 Oxygen Delivery Room Air 02/01/22 12:00 Temperature 36.6 C Pulse Rate 79 Respiratory Rate 20 Blood Pressure 139/93 H Pulse Oximetry 100 Oxygen Delivery Intake/Output Intake/Output: Intake & Output 01/29/22 01/30/22 01/31/22 02/01/22 23:59 23:59 23:59 23:59 Intake Total 2100 3340 2028 Output Total 550 1425 1100 Balance 1550 1915 928 Meds/Results Medications: Active Medications Generic Name Dose Route Start Last Admin Trade Name Freq PRN Reason Stop Dose Admin Acetaminophen 650 mg 01/31/22 15:43 Acetaminophen 325 Mg Tablet PO Q4H PRN Headache Hydrocodone Bitart/Acetaminophen 1 tab 01/31/22 15:43 01/31/22 20:54 Hydrocodone/Acetaminophen (*Crx) 5-325 Mg Tablet PO 1 tab Q6H PRN Administration Pain Rated 4-6 Dextrose 12.5 gm 01/30/22 14:31 Dextrose 50% 25 Gm/50 Ml Syringe IV PUSH PRN PRN Hypoglycemia Protocol Gabapentin 100 mg 01/31/22 21:00 01/31/22 20:51 Gabapentin 100 Mg Capsule PO 100 mg QHS IRLANDA Administration Glucagon 1 mg 01/30/22 14:31 Glucagon For Inj 1 Mg Vial IM PRN PRN Hypoglycemia Protocol Glucose 15 gm 01/30/22 14:31 Glucose Oral Gel 15 Gm Of Glucse In 37.5 Gm Tube PO PRN PRN Hypoglycemia Protocol Hydralazine HCl 10 mg 01/30/22 14:36 01/30/22 18:06 Hydralazine Hcl 20 Mg/Ml Vial IV PUSH 10 mg Q8H PRN Administration Blood Pressure - High Hydrochlorothiazide 12.5 mg 02/01/22 09:00 02/01/22 08:29 Hydrochlorothiazide 12.5 Mg Capsule PO 03/03/22 08:59 12.5 mg DAILY IRLANDA Administra
--- NOTE | 2022-02-01 12:44 | WPDGICN ---
Assessment and Plan Assessment and plan (1) Bowel obstruction: Code(s): K56.609 - Unspecified intestinal obstruction, unspecified as to partial versus complete obstruction Status: Acute Assessment and Plan: partial small bowel obstruction, resolved and NGT now removed surgery is in the case tolerating liquid diet, advance as tolerated (2) Colon cancer metastasized to liver: Code(s): C18.9 - Malignant neoplasm of colon, unspecified; C78.7 - Secondary malignant neoplasm of liver and intrahepatic bile duct Status: Acute Assessment and Plan: plan is to resume chemotherapy sometime next month he is seeing hem-oncology (3) Incisional hernia with obstruction: Code(s): K43.0 - Incisional hernia with obstruction, without gangrene Status: Acute Assessment and Plan: soft, no pain surgery on board (4) Acute generalized abdominal pain: Code(s): R10.84 - Generalized abdominal pain Status: Acute Assessment and Plan: almost gone (5) Liver metastases: Code(s): C78.7 - Secondary malignant neoplasm of liver and intrahepatic bile duct Status: Acute GI Consult Note Consult date/time: 02/01/22 12:44 Reason for consult: n/v, metastatic colon cancer, partial SBO HPI: Anjel Grijalva is a 36 year old male with history of metastatic colon cancer initially diagnosed in 2016 who has undergone extensive treatment and multiple surgeries with colon resection as well as debulking surgeries, he was getting chemotherapy in [place] and has been on a 2 month break from chemo with last treatment was November 19, 2021.? He came here with new onset of cramping lower abdominal pain that got severe and associated with nausea and vomiting, he started passing gas and felt that his abdominal pain improved.?CT scan of abdomen and pelvis reviewed and showed a large ventral hernia containing a loop of fluid-filled small bowel possibly suggesting either an early or partial small bowel obstruction.? Additionally seen is the metastasis in the liver, anterior abdominal wall, pericardium, and hepatic flexure of the colon.?NGT placed and overall much better, removed yesterday and now he is tolerating liquid diet, doing much better and back to his baseline. Review of Systems Review of Systems: All systems reviewed & are unremarkable except as noted in HPI and below Constitutional: Constitutional: Reports as per HPI, Denies fatigue and Denies fever(s) Eyes: Eyes: Reports no additional eye complaints ENT: Reports system reviewed and no additional complaints, except as documented Cardiovascular: Cardiovascular: Reports no additional cardiovascular complaints, Denies chest pain and Denies leg edema Respiratory: Respiratory: Reports no additional respiratory complaints, Denies cough and Denies dyspnea Gastrointestinal: Gastrointestinal: Reports as per HPI, Reports no additional gastrointestinal complaints, Reports abdominal pain, Denies bloating, Denies coffee ground emesis, Reports nausea, Reports vomiting and Denies hematemesis Genitourinary: Genitourinary: Reports no additional male genitourinary complaints Musculoskeletal: Musculoskeletal: Reports no additional musculoskeletal complaints Integumentary/Breasts: Skin/Breast: Reports system reviewed and no additional complaints, except as docu Neurologic: Reports system reviewed and no additional complaints, except as documented, Denies dizziness, Denies focal weakness and Denies numbness [facility] Past Medical History Medical History (Updated 01/31/22 @ 15:40 by Mari Flor PA-C) Benign reactive hypertension Candidiasis of genitalia Colon cancer Metastatic colon cancer with metastasis to the liver, anterior abdominal wall, pericardium, and hepatic flexure of the colon. Diabetes mellitus with hyperglycemia HTN (hypertension), malignant Liver metastases Mixed hyperlipidemia Morbid exogenous obesity Port-A-Cath in place Surgical Hist
[2022-02-01] MEDS: HYDROcodone/acetaminophen (*CRX) 7.5-325 MG TABLET 1 TAB PO ×2 (17:46→23:47)
[2022-02-01] MEDS: PSYLLIUM POWDER PACKET 1 PACKET PO (17:46)
[2022-02-01 17:55] LABS: Glucose Point of Care 111 mg/dl (65-105)
[2022-02-01] MEDS: PANTOPRAZOLE 40 MG TABLET PO (20:16)
[2022-02-01] MEDS: GABAPENTIN 100 MG CAPSULE PO (20:16)
[2022-02-01 23:54] LABS: Glucose Point of Care 106 mg/dl (65-105)
[2022-02-02] MEDS: ONDANSETRON HCL ODT 4 MG TABLET PO ×3 (00:15→20:06)
[2022-02-02 04:58] VITALS: BP 127/87; PULSE 103; RESP 20; TEMP 36.7; O2SAT 98
[2022-02-02 05:22] LABS: Glucose Point of Care 142 mg/dl (65-105)
[2022-02-02 05:27] LABS: Hematocrit 41.8 % (42.0-52.0); Hemoglobin 14.2 g/dL (14.0-18.0); Mean Corpuscular Hemoglobin 29.6 pg (26-34); Mean Corpuscular Volume 87.3 fl (80-100); Mean Platelet Volume 10.3 fl (7.4-10.4); Platelet Count Result 209 k/mm3 (150-375); Red Blood Count 4.79 M/mm3 (4.6-6.20); Red Cell Distribution Width 12.9 % (11.5-14.5); White Blood Count 5.5 K/mm3 (4.5-10.0)
[2022-02-02 05:45] LABS: Anion Gap 13 mmol/L (8-16); Blood Urea Nitrogen 8 mg/dL (9-20); Calcium 9.4 mg/dL (8.4-10.2); Carbon Dioxide 27 mmol/L (22-30); Chloride 94 mmol/L (98-107); Estimated CRCL calculation 156 ml/min; Estimated Glomerular Filt Rate > 60; Glucose 140 mg/dL (65-110); Potassium 3.4 mmol/L (3.4-5.0); Sodium 134 mmol/L (137-145)
[2022-02-02] MEDS: polyethylene glycoL 3350 17 GM POWD.PACK PO (08:10)
[2022-02-02] MEDS: BISACODYL 10 MG SUPPOSITORY RECTAL (08:11)
[2022-02-02 08:12] VITALS: PULSE 84
[2022-02-02] MEDS: METOPROLOL SUCCINATE EXT REL 50 MG TABCR PO (08:12)
[2022-02-02 08:13] VITALS: PULSE 84; RESP 20; O2SAT 98
[2022-02-02] MEDS: lisinopriL 10 MG TABLET PO (08:13)
[2022-02-02] MEDS: PANTOPRAZOLE 40 MG TABLET PO ×2 (08:13→20:13)
[2022-02-02] MEDS: hydroCHLOROthiazide 12.5 MG CAPSULE PO (08:13)
[2022-02-02 08:57] LABS: Glucose Point of Care 149 mg/dl (65-105)
--- NOTE | 2022-02-02 09:59 | WPDGIPROGNO ---
Progress Note: A&P Assessment and Plan (1) Bowel obstruction: Code(s): K56.609 - Unspecified intestinal obstruction, unspecified as to partial versus complete obstruction Status: Acute Assessment and Plan: partial SBO on liquid diet pain again today, started on miralax and metamucil will monitor, surgery on board (2) Incisional hernia with obstruction: Code(s): K43.0 - Incisional hernia with obstruction, without gangrene Status: Acute Assessment and Plan: soft (3) Acute generalized abdominal pain: Code(s): R10.84 - Generalized abdominal pain Status: Acute Assessment and Plan: pain meds as needed unfortunately he has advanced colon cancer with mets which probably is main cause of issues (4) Colon cancer metastasized to liver: Code(s): C18.9 - Malignant neoplasm of colon, unspecified; C78.7 - Secondary malignant neoplasm of liver and intrahepatic bile duct Status: Acute Assessment and Plan: oncology on board, stage IV (5) History of abdominal surgery: Code(s): Z98.890 - Other specified postprocedural states Status: Acute Subjective Date/time seen: 02/02/22 09:59 Interval history: he had a good day yesterday but today again with cramping, no more vomiting though, passing gas but still has not had BM Review of Systems Review of Systems: All systems reviewed & are unremarkable except as noted in HPI and below Exam Const: General: cooperative, comfortable and no acute distress HENMT: General nose exam: Normal nares present Eyes: General: appearance normal, both eyes and all related structures Neck: Neck: supple Resp: Auscultation: clear to auscultation bilaterally Cardio: Rate: regular rate Rhythm: regular rhythm GI: Inspection: normal to inspection, non-distended and incision GI Palp: Yes Soft to palpation, No Guarding due to palpation present (GI) and No Rigid due to palpation Auscultation: normal bowel sounds Other: large VH - reducible, soft Skin: General skin exam: normal color Neuro: Speech: normal speech Motor exam (neuro): 5/5 motor strength present throughout Extrem: General: normal to inspection Psych: Mental Status: mental status grossly normal Objective Data Vital Signs Vital Signs: Vital Signs - 24 hr 02/01/22 12:00 02/01/22 16:00 02/01/22 20:00 Temperature 97.8 F 98.7 F 98.3 F Pulse Rate 79 82 77 Respiratory Rate 20 18 18 Blood Pressure 139/93 H 141/92 H 135/94 H Pulse Oximetry 100 99 100 02/02/22 04:58 02/02/22 08:12 Temperature 98.1 F Pulse Rate 103 H 84 Respiratory Rate 20 Blood Pressure 127/87 Pulse Oximetry 98 Intake/Output Intake/Output: Intake & Output 01/30/22 01/31/22 02/01/22 02/02/22 23:59 23:59 23:59 23:59 Intake Total 2100 3340 2968 Output Total 550 1425 3400 900 Balance 1550 9588 -994 -900 Meds/Results Medications: Active Medications Generic Name Dose Route Start Last Admin Trade Name Freq PRN Reason Stop Dose Admin Acetaminophen 650 mg 01/31/22 15:43 Acetaminophen 325 Mg Tablet PO Q4H PRN Headache Hydrocodone Bitart/Acetaminophen 1 tab 02/01/22 12:52 02/01/22 23:47 Hydrocodone/Acetaminophen (*Crx) 7.5-325 Mg Tablet PO 1 tab Q6H PRN Administration Pain Rated 7-10 Bisacodyl 10 mg 02/01/22 12:54 02/02/22 08:11 Bisacodyl 10 Mg Suppository RECTAL 10 mg QAM PRN Administration Constipation Dextrose 12.5 gm 01/30/22 14:31 Dextrose 50% 25 Gm/50 Ml Syringe IV PUSH PRN PRN Hypoglycemia Protocol Gabapentin 100 mg 01/31/22 21:00 02/01/22 20:16 Gabapentin 100 Mg Capsule PO 100 mg QHS IRLANDA Administration Glucagon 1 mg 01/30/22 14:31 Glucagon For Inj 1 Mg Vial IM PRN PRN Hypoglycemia Protocol Glucose 15 gm 01/30/22 14:31 Glucose Oral Gel 15 Gm Of Glucse In 37.5 Gm Tube PO PRN PRN Hypoglycemia Protocol Hydralazine HCl 10
[2022-02-02] MEDS: HYDROcodone/acetaminophen (*CRX) 7.5-325 MG TABLET 1 TAB PO ×2 (10:29→20:14)
--- NOTE | 2022-02-02 11:07 | PM.IMPN ---
Progress Note: A&P Assessment and Plan (1) Bowel obstruction: Code(s): K56.609 - Unspecified intestinal obstruction, unspecified as to partial versus complete obstruction Status: Acute Assessment and Plan: patient presented with abdominal pain and no bowel movement for [address] demonstrated large ventral hernia containing loop of fluid-filled small bowel suggestive of early or partial SBO appreciate general surgery consultation NG tube discontinued on 01/31 supportive care. continue diabetic diet. Decreased po intake today due to abdominal cramping repeat obstructive series abdominal xray tomorrow (2) Colon cancer metastasized to liver: Code(s): C18.9 - Malignant neoplasm of colon, unspecified; C78.7 - Secondary malignant neoplasm of liver and intrahepatic bile duct Status: Acute Assessment and Plan: patient is [facility] [place] recently completed a round of chemotherapy on 11/19. Currently on 2 month chemo holiday follow-up appointment scheduled in 2 weeks patient has been seen by Oncology here (Dr. Bennett). Recommended patient be discharged with disc of CT scan to bring to his oncologist at his next appointment (3) Diabetes mellitus with hyperglycemia: Qualifiers: Diabetes mellitus type: type 2 Diabetes mellitus intermediate designer insulin use: with [facility] use Qualified Code(s): E11.65 - Type 2 diabetes mellitus with hyperglycemia; Z79.4 - custodial (current) use of insulin Code(s): E11.65 - Type 2 diabetes mellitus with hyperglycemia Status: Acute Assessment and Plan: A1c is 7.3 blood sugars well controlled this admission continue Accu-Cheks, sliding scale insulin, hypoglycemic protocol (4) HTN (hypertension), malignant: Code(s): I10 - Essential (primary) hypertension Status: Acute Assessment and Plan: blood pressures have been reasonably controlled. Last BP 127/87 continue home lisinopril-hydrochlorothiazide and metoprolol succinate Subjective Date/time seen: 02/02/22 11:07 Interval history: date of service: 02/02/2022 Anjel Grijalva is a 36-year-old male with a history of colon cancer with liver metastases s/p colectomy and chemotherapy (currently on chemo holiday for 2 months), type 2 diabetes mellitus, hyperlipidemia who is seen in follow up for bowel obstruction. he is having abdominal cramping today and has not been able to attempt his solid diet. He is concerned about trying to eat given onset of cramping since last night. He did have a few oyster crackers. He had a formed bowel movement today after having a suppository. He stated he strained in order to have a bowel movement. He denies nausea or vomiting. He is tolerating clear liquids. No shortness of breath or chest pain. No additional concerns. Review of Systems Review of Systems: All systems reviewed & are unremarkable except as noted in HPI and below Exam Narrative: General: Well-nourished, well-appearing 36-year-old male, sitting up in bed, comfortable, NARD Neuro: awake, alert and oriented x4, speech clear, no focal neuro deficits noted HEENMT: normocephalic, atraumatic, EOMI, sclerae anicteric Respiratory: clear to auscultation bilaterally, nonlabored breathing Cardio: regular rate, regular rhythm with S1-S2 Abdomen: mildly distended, normoactive bowel sounds, soft, soft ventral hernia noted, midline abdominal incision Extremities: no edema, erythema, or tenderness to palpation, DP pulses 2+ bilaterally Skin: no rashes or lesions, warm and dry Psych: appropriate mood and affect, judgment and insight intact Objective Data Vital Signs Vital Signs: Vital Signs - 24 hr 02/01/22 12:00 02/01/22 16:00 02/01/22 20:00 Temperature 97.8 F 98.7 F 98.3 F Pulse Rate 79 82 77 Respiratory Rate 20 18 18 Blood Pressure 139/93 H 141/92 H 135/94 H Pulse Oximetry 100 99 100 Oxygen Del
[2022-02-02 11:41] LABS: IFOB Positive Control Positive; Immunochemical Fecal Occult Bl Negative (N)
[2022-02-02 12:23] LABS: Glucose Point of Care 177 mg/dl (65-105)
--- NOTE | 2022-02-02 13:19 | PM.PNGS ---
Progress Note: A&P Assessment and Plan (1) Incisional hernia with obstruction: Code(s): K43.0 - Incisional hernia with obstruction, without gangrene Status: Acute Assessment and Plan: Today's exam benign, hernia reducible Today with the patient sitting up in at a 45 degree angle there was more bulging at his ventral incisional hernia upper mid abdomen. By placing the patient flat I was able to reduce it again. Tolerating clears overnight will ADAT, encourage OOB and walking , encouraged use of abdominal binder and explained its use. Started a regimen of MiraLax and Metamucil on 02/01 to help promote good bowel function while taking oxycodone at home in his palliative situation. Ordered an obstructive series for a.m. to recheck be sure there was no signs of bowel obstruction related to the hernia. Subjective Subjective Date/Time Seen: 02/02/22 12:19 Post Op day: 4 Patient reports: still having pain, tolerating liquids well, flatus, bowel movement ( after a suppository this a.m..), afebrile and other ( Some upper abdominal discomfort.) Review of Systems Review of Systems: All systems reviewed & are unremarkable except as noted in HPI and below Constitutional: Constitutional: Reports as per HPI, Denies chills and Denies fever(s) Cardiovascular: Cardiovascular: Denies chest pain and Denies dyspnea Respiratory: Respiratory: Reports no additional respiratory complaints and Denies dyspnea Gastrointestinal: Gastrointestinal: Reports as per HPI and Denies bloating Musculoskeletal: Musculoskeletal: Reports no additional musculoskeletal complaints Neurologic: Denies memory loss Psychiatric: Psychiatric: Denies anxiety and Denies memory loss Exam Const: General: cooperative, comfortable and no acute distress Resp: Effort & Inspection: normal respiratory effort and able to speak in complete sentences GI: Inspection: normal to inspection, non-distended and incision GI Palp: Yes Soft to palpation, No Guarding due to palpation present (GI) and No Rigid due to palpation Other: large VH - reducible, soft , but somewhat tender while reducing it today. Objective Data Vital Signs Vital Signs: Vital Signs - 24 hr 02/01/22 16:00 02/01/22 20:00 02/02/22 04:58 Temperature 37.1 C 36.8 C 36.7 C Pulse Rate 82 77 103 H Respiratory Rate 18 18 20 Blood Pressure 141/92 H 135/94 H 127/87 Pulse Oximetry 99 100 98 Oxygen Delivery 02/02/22 08:12 02/02/22 08:13 Temperature Pulse Rate 84 84 Respiratory Rate 20 Blood Pressure Pulse Oximetry 98 Oxygen Delivery Room Air Intake/Output Intake/Output: Intake & Output 01/30/22 01/31/22 02/01/22 02/02/22 23:59 23:59 23:59 23:59 Intake Total 2100 3340 2968 Output Total 550 1425 3400 900 Balance 1550 4390 -432 900 Meds/Results Medications: Active Medications Generic Name Dose Route Start Last Admin Trade Name Freq PRN Reason Stop Dose Admin Acetaminophen 650 mg 01/31/22 15:43 Acetaminophen 325 Mg Tablet PO Q4H PRN Headache Hydrocodone Bitart/Acetaminophen 1 tab 02/01/22 12:52 02/02/22 10:29 Hydrocodone/Acetaminophen (*Crx) 7.5-325 Mg Tablet PO 1 tab Q6H PRN Administration Pain Rated 7-10 Bisacodyl 10 mg 02/01/22 12:54 02/02/22 08:11 Bisacodyl 10 Mg Suppository RECTAL 10 mg QAM PRN Administration Constipation Dextrose 12.5 gm 01/30/22 14:31 Dextrose 50% 25 Gm/50 Ml Syringe IV PUSH PRN PRN Hypoglycemia Protocol Gabapentin 100 mg 01/31/22 21:00 02/01/22 20:16 Gabapentin 100 Mg Capsule PO 100 mg QHS IRLANDA Administration Glucagon 1 mg 01/30/22 14:31 Glucagon For Inj 1 Mg Vial IM PRN PRN Hypoglycemia Protocol Glucose 15 gm 01/30/22 14:31 Glucose Oral Gel 15 Gm Of Glucse In 37.5 Gm Tube PO PRN PRN Hypoglycemia Protocol Hydralazine HCl 10 mg 01/30/22 14:36 01/30/22 18:06 Hydralazine Hcl 20 Mg/Ml Vial IV PUSH
[2022-02-02 14:35] VITALS: BP 137/84; PULSE 86; RESP 20; TEMP 36.6; O2SAT 98
[2022-02-02 17:41] LABS: Glucose Point of Care 167 mg/dl (65-105)
[2022-02-02] MEDS: PSYLLIUM POWDER PACKET 1 PACKET PO (17:42)
[2022-02-02] MEDS: GABAPENTIN 100 MG CAPSULE PO (20:13)
[2022-02-02 21:16] VITALS: BP 124/103; PULSE 133; RESP 22; TEMP 36.6; O2SAT 100
[2022-02-02 23:08] LABS: Glucose Point of Care 196 mg/dl (65-105)
--- NOTE | 2022-02-03 03:25 | PC.NURSE ---
Provider ordered stat KUB xray at 2146 on 02/02/2022. RN called Radiology roughly one hour after KUB xray was taken, given there had been no results. Radiology stated they needed to send off the xray to stat rad. Still no results as of this time. Continuing to monitor patient, who is currently asleep.
[2022-02-03 05:22] LABS: Glucose Point of Care 180 mg/dl (65-105)
[2022-02-03 06:00] VITALS: BP 123/87; PULSE 123; RESP 20; TEMP 36.6; O2SAT 97
[2022-02-03 06:43] LABS: Anion Gap 18 mmol/L (8-16); Blood Urea Nitrogen 23 mg/dL (9-20); Calcium 10.4 mg/dL (8.4-10.2); Carbon Dioxide 27 mmol/L (22-30); Chloride 91 mmol/L (98-107); Estimated CRCL calculation 107 ml/min; Estimated Glomerular Filt Rate > 60; Glucose 168 mg/dL (65-110); Potassium 3.7 mmol/L (3.4-5.0); Sodium 136 mmol/L (137-145)
[2022-02-03 08:33] VITALS: PULSE 104
[2022-02-03] MEDS: hydroCHLOROthiazide 12.5 MG CAPSULE PO (08:33)
[2022-02-03] MEDS: METOPROLOL SUCCINATE EXT REL 50 MG TABCR PO (08:33)
[2022-02-03] MEDS: lisinopriL 10 MG TABLET PO (08:33)
[2022-02-03] MEDS: PANTOPRAZOLE 40 MG TABLET PO ×2 (08:34→20:09)
[2022-02-03] MEDS: polyethylene glycoL 3350 17 GM POWD.PACK PO (08:34)
[2022-02-03] MEDS: BISACODYL 10 MG SUPPOSITORY RECTAL (08:35)
[2022-02-03 12:19] LABS: Glucose Point of Care 206 mg/dl (65-105)
--- NOTE | 2022-02-03 12:19 | WPDGIPROGNO ---
Progress Note: A&P Assessment and Plan (1) Bowel obstruction: Code(s): K56.609 - Unspecified intestinal obstruction, unspecified as to partial versus complete obstruction Status: Acute Assessment and Plan: partial SBO resolved, less pain today and passing gas advance diet as tolerated surgery on board will follow [place], call if questions (2) Incisional hernia with obstruction: Code(s): K43.0 - Incisional hernia with obstruction, without gangrene Status: Acute Assessment and Plan: soft (3) Acute generalized abdominal pain: Code(s): R10.84 - Generalized abdominal pain Status: Acute Assessment and Plan: pain meds as needed unfortunately he has advanced colon cancer with mets which probably is main cause of issues (4) Colon cancer metastasized to liver: Code(s): C18.9 - Malignant neoplasm of colon, unspecified; C78.7 - Secondary malignant neoplasm of liver and intrahepatic bile duct Status: Acute Assessment and Plan: oncology on board, stage IV (5) History of abdominal surgery: Code(s): Z98.890 - Other specified postprocedural states Status: Acute Subjective Date/time seen: 02/03/22 12:19 Interval history: less abdominal pain today, had BM yesterday and passing gas. Review of Systems Review of Systems: All systems reviewed & are unremarkable except as noted in HPI and below Exam Const: General: cooperative, comfortable and no acute distress HENMT: General nose exam: Normal nares present Eyes: General: appearance normal, both eyes and all related structures Neck: Neck: supple Resp: Auscultation: clear to auscultation bilaterally Cardio: Rate: regular rate Rhythm: regular rhythm GI: Inspection: normal to inspection, non-distended and incision GI Palp: Yes Soft to palpation, No Guarding due to palpation present (GI) and No Rigid due to palpation Auscultation: normal bowel sounds Other: large VH - reducible, soft Skin: General skin exam: normal color Neuro: Speech: normal speech Motor exam (neuro): 5/5 motor strength present throughout Extrem: General: normal to inspection Psych: Mental Status: mental status grossly normal Objective Data Vital Signs Vital Signs: Vital Signs - 24 hr 02/02/22 14:35 02/02/22 21:16 02/03/22 06:00 Temperature 98 F 97.8 F 97.9 F Pulse Rate 86 133 H 123 H Respiratory Rate 20 22 H 20 Blood Pressure 137/84 124/103 H 123/87 Pulse Oximetry 98 100 97 Oxygen Delivery 02/03/22 08:33 02/03/22 08:00 Temperature Pulse Rate 104 H Respiratory Rate Blood Pressure Pulse Oximetry Oxygen Delivery Room Air Intake/Output Intake/Output: Intake & Output 01/31/22 02/01/22 02/02/22 02/03/22 23:59 23:59 23:59 23:59 Intake Total 3340 2968 830 240 Output Total 1425 3400 1500 Balance 8781 -208 -619 240 Meds/Results Medications: Active Medications Generic Name Dose Route Start Last Admin Trade Name Freq PRN Reason Stop Dose Admin Acetaminophen 650 mg 01/31/22 15:43 Acetaminophen 325 Mg Tablet PO Q4H PRN Headache Hydrocodone Bitart/Acetaminophen 1 tab 02/01/22 12:52 02/02/22 20:14 Hydrocodone/Acetaminophen (*Crx) 7.5-325 Mg Tablet PO 1 tab Q6H PRN Administration Pain Rated 7-10 Bisacodyl 10 mg 02/01/22 12:54 02/03/22 08:35 Bisacodyl 10 Mg Suppository RECTAL 10 mg QAM PRN Administration Constipation Dextrose 12.5 gm 01/30/22 14:31 Dextrose 50% 25 Gm/50 Ml Syringe IV PUSH PRN PRN Hypoglycemia Protocol Gabapentin 100 mg 01/31/22 21:00 02/02/22 20:13 Gabapentin 100 Mg Capsule PO 100 mg QHS IRLANDA Administration Glucagon 1 mg 01/30/22 14:31 Glucagon For Inj 1 Mg Vial IM PRN PRN Hypoglycemia Protocol Glucose 15 gm 01/30/22 14:31 Glucose Oral Gel 15 Gm Of Glucse In 37.5 Gm Tube PO PRN PRN Hypoglycemia Protocol Hydralazine HCl 10
[2022-02-03] MEDS: INSULIN ASPART (*BKC) 100 UNITS/ML SUB-Q (12:23)
--- NOTE | 2022-02-03 13:39 | PM.PNGS ---
Progress Note: A&P Assessment and Plan (1) Incisional hernia with obstruction: Code(s): K43.0 - Incisional hernia with obstruction, without gangrene Status: Acute Assessment and Plan: Incisional hernia remains soft and reducible today, but he is more symptomatic. He is having pain at the hernia and has now had two episodes of vomiting overnight and this morning. Plain films are unremarkable. No signs of an obstruction and he has moved his bowels. We would recommend transferring the patient to a tertiary care facility where he could be evaluated for a possible hernia repair due to his significant metastatic disease. There is no emergent indication for repair, but we are unable to control his pain and he is not tolerating a diet. May also consider a Gastrografin small bowel follow through or replacing the NG tube if vomiting persists. Discussed with the Hospitalist. Plan I have discussed the patient's case and plan of care with Dr. Jacobsen. Subjective Subjective Date/Time Seen: 02/03/22 13:00 Patient reports: still having pain, flatus, bowel movement (one yesterday morning), nausea and vomiting Interval history: Patient seen and examined. Had an episode of vomiting last night after eating liquids for dinner and again this morning after breakfast. Reports flatus and last BM yesterday morning. His pain initially got better but he feels it is worse again today. His pain is all located at the area of the hernia. He feels it is bulging out. He had not been wearing his abdominal binder because he thought it was making the pain worse, but started wearing it again today. Review of Systems Review of Systems: All systems reviewed & are unremarkable except as noted in HPI and below Exam Const: General: comfortable and no acute distress Orientation/consciousness: patient oriented x3 GI: Inspection: non-distended, scar (Large midline scar across his entire abdomen) and visible herniation (Supraumbilical incisional hernia, soft and reducible, but tender on exam ) Auscultation: normal bowel sounds Extrem: General: normal to inspection Psych: Mental Status: mental status grossly normal Insight: Good insight present (Psych) Objective Data Vital Signs Vital Signs: Vital Signs - 24 hr 02/02/22 14:35 02/02/22 21:16 02/03/22 06:00 Temperature 98 F 97.8 F 97.9 F Pulse Rate 86 133 H 123 H Respiratory Rate 20 22 H 20 Blood Pressure 137/84 124/103 H 123/87 Pulse Oximetry 98 100 97 Oxygen Delivery 02/03/22 08:33 02/03/22 08:00 Temperature Pulse Rate 104 H Respiratory Rate Blood Pressure Pulse Oximetry Oxygen Delivery Room Air Intake/Output Intake/Output: Intake & Output 01/31/22 02/01/22 02/02/22 02/03/22 23:59 23:59 23:59 23:59 Intake Total 3340 2968 830 240 Output Total 1425 3400 1500 Balance 2536 -444 -754 240 Meds/Results Medications: Active Medications Generic Name Dose Route Start Last Admin Trade Name Freq PRN Reason Stop Dose Admin Acetaminophen 650 mg 01/31/22 15:43 Acetaminophen 325 Mg Tablet PO Q4H PRN Headache Hydrocodone Bitart/Acetaminophen 1 tab 02/01/22 12:52 02/02/22 20:14 Hydrocodone/Acetaminophen (*Crx) 7.5-325 Mg Tablet PO 1 tab Q6H PRN Administration Pain Rated 7-10 Bisacodyl 10 mg 02/01/22 12:54 02/03/22 08:35 Bisacodyl 10 Mg Suppository RECTAL 10 mg QAM PRN Administration Constipation Dextrose 12.5 gm 01/30/22 14:31 Dextrose 50% 25 Gm/50 Ml Syringe IV PUSH PRN PRN Hypoglycemia Protocol Gabapentin 100 mg 01/31/22 21:00 02/02/22 20:13 Gabapentin 100 Mg Capsule PO 100 mg QHS IRLANDA Administration Glucagon 1 mg 01/30/22 14:31 Glucagon For Inj 1 Mg Vial IM PRN PRN Hypoglycemia Protocol Glucose 15 gm 01/30/22 14:31 Glucose Oral Gel 15 Gm Of Glucse In 37.5 Gm Tube PO PRN PRN Hypoglycemia Protocol Hydralazine HCl 10 mg 01/30/22 14:36 01/16
[2022-02-03 14:00] VITALS: BP 108/89; PULSE 121; RESP 18; TEMP 36.6; O2SAT 99
--- NOTE | 2022-02-03 16:11 | PM.IMPN ---
Progress Note: A&P Assessment and Plan (1) Bowel obstruction: Code(s): K56.609 - Unspecified intestinal obstruction, unspecified as to partial versus complete obstruction Status: Acute Assessment and Plan: patient presented with abdominal pain and no bowel movement for [address] demonstrated large ventral hernia containing loop of fluid-filled small bowel suggestive of early or partial SBO appreciate general surgery consultation NG tube discontinued on 01/31 supportive care. continue diabetic diet. Decreased po intake today due to abdominal cramping KUB today showed nonobstructive bowel gas pattern however patient has persistent nausea, vomiting, abdominal cramping. general surgery has recommended transfer to tertiary care facility for evaluation of hernia repair. call to [facility], not accepting patients for transfer at this time call to [facility], spoke with acute care surgeon Dr. Roa who accepts for transfer. Transfer center reports 5+ day wait for bed. Dr. Roa would like to speak with Dr. Jacobsen (General surgeon). Relayed contact information. (2) Colon cancer metastasized to liver: Code(s): C18.9 - Malignant neoplasm of colon, unspecified; C78.7 - Secondary malignant neoplasm of liver and intrahepatic bile duct Status: Acute Assessment and Plan: [facility] is [facility] [place] recently completed a round of chemotherapy on 11/19. Currently on 2 month chemo holiday follow-up appointment scheduled in 2 weeks patient has been seen by Oncology here (Dr. Bennett). Recommended patient be discharged with disc of CT scan to bring to his oncologist at his next appointment (3) Diabetes mellitus with hyperglycemia: Qualifiers: Diabetes mellitus type: type 2 Diabetes mellitus detention insulin use: with remote computer terminal operator use Qualified Code(s): E11.65 - Type 2 diabetes mellitus with hyperglycemia; Z79.4 - remote computer terminal operator (current) use of insulin Code(s): E11.65 - Type 2 diabetes mellitus with hyperglycemia Status: Acute Assessment and Plan: A1c is 7.3 blood sugars well controlled this admission continue Accu-Cheks, sliding scale insulin, hypoglycemic protocol (4) HTN (hypertension), malignant: Code(s): I10 - Essential (primary) hypertension Status: Acute Assessment and Plan: blood pressures have been reasonably controlled. Last BP 108/89 continue home lisinopril-hydrochlorothiazide and metoprolol succinate Subjective Date/time seen: 02/03/22 16:11 Interval history: date of service: 02/03/2022 Anjel Grijalva is a 36-year-old male with a history of colon cancer with liver metastases s/p colectomy and chemotherapy (currently on chemo holiday for 2 months), type 2 diabetes mellitus, hyperlipidemia who is seen in follow up for bowel obstruction. he complains of severe abdominal cramping today. He has not been able to tolerate any solids. He is doing okay keeping down liquids. He had an Ensure and a clear soda for lunch today. He has had 2-3 episodes of clear emesis and endorses persistent nausea. He has been trying to have a bowel movement has not been able to move his bowels today. He also complains of hiccups today. Review of Systems Review of Systems: All systems reviewed & are unremarkable except as noted in HPI and below Exam Narrative: General: Well-nourished, well-appearing 36-year-old male, sitting up in bed, appears uncomfortable, NARD Neuro: awake, alert and oriented x4, speech clear, no focal neuro deficits noted HEENMT: normocephalic, atraumatic, EOMI, sclerae anicteric Respiratory: clear to auscultation bilaterally, nonlabored breathing Cardio: regular rate, regular rhythm with S1-S2 Abdomen: mildly distended, normoactive bowel sounds, soft, soft ventral hernia noted, midline abdominal incision Extremities: no edema, erythema, or tenderness to palpation, DP pulses 2+ b
[2022-02-03 17:34] LABS: Glucose Point of Care 191 mg/dl (65-105)
[2022-02-03] MEDS: PSYLLIUM POWDER PACKET 1 PACKET PO (17:41)
[2022-02-03] MEDS: GABAPENTIN 100 MG CAPSULE PO (20:09)
[2022-02-03 21:20] VITALS: BP 120/92; PULSE 120; RESP 16; TEMP 36.5; O2SAT 99
[2022-02-03 23:21] LABS: Glucose Point of Care 164 mg/dl (65-105)
[2022-02-04] MEDS: HYDROcodone/acetaminophen (*CRX) 7.5-325 MG TABLET 1 TAB PO (04:17)
[2022-02-04 06:00] VITALS: BP 111/91; PULSE 121; RESP 20; TEMP 36.6; O2SAT 97
[2022-02-04 06:02] LABS: Anion Gap 22 mmol/L (8-16); Blood Urea Nitrogen 30 mg/dL (9-20); Calcium 10.1 mg/dL (8.4-10.2); Carbon Dioxide 20 mmol/L (22-30); Chloride 90 mmol/L (98-107); Estimated CRCL calculation 136 ml/min; Estimated Glomerular Filt Rate > 60; Glucose 174 mg/dL (65-110); Potassium 3.3 mmol/L (3.4-5.0); Sodium 132 mmol/L (137-145)
[2022-02-04 06:10] LABS: Glucose Point of Care 183 mg/dl (65-105)
[2022-02-04 06:30] LABS: Hematocrit 46.5 % (42.0-52.0); Hemoglobin 15.9 g/dL (14.0-18.0); Mean Corpuscular HGB Conc 34.2 g/dl (32-36); Mean Corpuscular Hemoglobin 29.7 pg (26-34); Mean Corpuscular Volume 86.8 fl (80-100); Mean Platelet Volume 10.1 fl (7.4-10.4); Platelet Count Result 292 k/mm3 (150-375); Red Blood Count 5.36 M/mm3 (4.6-6.20); Red Cell Distribution Width 13.4 % (11.5-14.5); White Blood Count 9.9 K/mm3 (4.5-10.0)
[2022-02-04 08:20] VITALS: PULSE 124
[2022-02-04] MEDS: PANTOPRAZOLE 40 MG TABLET PO ×2 (08:20→21:48)
[2022-02-04] MEDS: METOPROLOL SUCCINATE EXT REL 50 MG TABCR PO (08:20)
[2022-02-04] MEDS: hydroCHLOROthiazide 12.5 MG CAPSULE PO (08:21)
[2022-02-04] MEDS: lisinopriL 10 MG TABLET PO (08:21)
[2022-02-04] MEDS: POTASSIUM CHLORIDE 20 MEQ TABLET PO (08:22)
[2022-02-04] MEDS: polyethylene glycoL 3350 17 GM POWD.PACK PO (08:22)
[2022-02-04] MEDS: BISACODYL 10 MG SUPPOSITORY RECTAL (08:22)
[2022-02-04 08:44] LABS: Glucose Point of Care 161 mg/dl (65-105)
--- NOTE | 2022-02-04 12:31 | PM.PNGS ---
Progress Note: A&P Assessment and Plan (1) Incisional hernia with obstruction: Code(s): K43.0 - Incisional hernia with obstruction, without gangrene Status: Acute Assessment and Plan: d/w pt and would prefer transfer to tertiary care facility, d/w surgeon at [facility] and they have accepted pt pending bed (2) Colon cancer metastasized to liver: Code(s): C18.9 - Malignant neoplasm of colon, unspecified; C78.7 - Secondary malignant neoplasm of liver and intrahepatic bile duct Status: Acute Assessment and Plan: on , pt has been seen by med oncology, await transfer to [facility] for eval by surgical oncologist Subjective Subjective Date/Time Seen: 02/04/22 12:31 feels ok, diego clears, still c soreness javon c movt Review of Systems Review of Systems: All systems reviewed & are unremarkable except as noted in HPI and below Exam Const: General: cooperative and no acute distress Resp: Auscultation: clear to auscultation bilaterally Cardio: Rate: regular rate Rhythm: regular rhythm GI: Inspection: normal to inspection, distended and incision GI Palp: Yes abdominal tenderness, Yes Soft to palpation, Yes Tenderness to palpation present (GI), No Guarding due to palpation present (GI), No Rigid due to palpation and Yes Hernia present Objective Data Vital Signs Vital Signs: Vital Signs - 24 hr 02/03/22 14:00 02/03/22 21:20 02/04/22 06:00 Temperature 36.6 C 36.5 C 36.6 C Pulse Rate 121 H 120 H 121 H Respiratory Rate 18 16 20 Blood Pressure 108/89 120/92 H 111/91 H Pulse Oximetry 99 99 97 Oxygen Delivery 02/04/22 08:20 02/04/22 08:00 Temperature Pulse Rate 124 H Respiratory Rate Blood Pressure Pulse Oximetry Oxygen Delivery Room Air Intake/Output Intake/Output: Intake & Output 02/01/22 02/02/22 02/03/22 02/04/22 23:59 23:59 23:59 23:59 Intake Total 2968 830 1010 780 Output Total 3400 1500 600 25 Balance -432 -670 410 755 Meds/Results Medications: Active Medications Generic Name Dose Route Start Last Admin Trade Name Freq PRN Reason Stop Dose Admin Acetaminophen 650 mg 01/31/22 15:43 Acetaminophen 325 Mg Tablet PO Q4H PRN Headache Hydrocodone Bitart/Acetaminophen 1 tab 02/01/22 12:52 02/04/22 04:17 Hydrocodone/Acetaminophen (*Crx) 7.5-325 Mg Tablet PO 1 tab Q6H PRN Administration Pain Rated 7-10 Bisacodyl 10 mg 02/01/22 12:54 02/04/22 08:22 Bisacodyl 10 Mg Suppository RECTAL 10 mg QAM PRN Administration Constipation Dextrose 12.5 gm 01/30/22 14:31 Dextrose 50% 25 Gm/50 Ml Syringe IV PUSH PRN PRN Hypoglycemia Protocol Gabapentin 100 mg 01/31/22 21:00 02/03/22 20:09 Gabapentin 100 Mg Capsule PO 100 mg QHS IRLANDA Administration Glucagon 1 mg 01/30/22 14:31 Glucagon For Inj 1 Mg Vial IM PRN PRN Hypoglycemia Protocol Glucose 15 gm 01/30/22 14:31 Glucose Oral Gel 15 Gm Of Glucse In 37.5 Gm Tube PO PRN PRN Hypoglycemia Protocol Hydralazine HCl 10 mg 01/30/22 14:36 01/30/22 18:06 Hydralazine Hcl 20 Mg/Ml Vial IV PUSH 10 mg Q8H PRN Administration Blood Pressure - High Hydrochlorothiazide 12.5 mg 02/01/22 09:00 02/04/22 08:21 Hydrochlorothiazide 12.5 Mg Capsule PO 03/03/22 08:59 12.5 mg DAILY IRLANDA Administration Dextrose 1,000 mls @ 100 mls/hr 01/30/22 14:31 Dextrose 5% 1,000 Ml IVPB PRN PRN Hypoglycemia Protocol Insulin Aspart 2 - 5 units 01/30/22 18:00 02/04/22 06:05 Insulin Aspart (*Bkc) 100 Units/Ml SUB-Q Not Given Q6HR IRLANDA Protocol Lisinopril 10 mg 02/01/22 09:00 02/04/22 08:21 Lisinopril 10 Mg Tablet PO 03/03/22 08:59 10 mg DAILY IRLANDA Administration Metoprolol Succinate 50 mg 02/01/22 09:00 02/04/22 08:20 Metoprolol Succinate Ext Rel 50 Mg Tabcr PO 50 mg DAILY IRLANDA Administration Morphine Sulfate 2 mg 02/04/22 12:29 Morphine Sulfat
[2022-02-04] MEDS: MORPHINE SULFATE (*CRX) 2 MG/ML INJ IV PUSH ×2 (13:16→22:31)
--- NOTE | 2022-02-04 13:23 | PCNFU ---
Nutrition Follow-Up Complete: Inadequate energy intake related to diet orders and altered GI function as evidenced by NPO status with bowel obstruction goal: Meet estimated needs patient is not meeting goal. We will continue current goal. Pt current nutrition is Clear Liquid. Nutrition recommendation: TPN at 40 ml/hr to start advancing to goal rate of 70 ml/hr Last recorded weight is 89.9 kg, down from 95 kg on admit. Bowel Motility:+BM reported 02/03 Labs Reviewed: Glu 174, BUN 30, Na 132, K 3.3 Meds Noted:Miralax, Protonix, Dulcolax suppository, Toprol, Morphine Sulfate, [place] Skin: WNL Additional Notes: Nutrition follow up. Patient was admitted on 01/30, NPO with NGT. Diet orders has advanced to clear liquids and NGT has been discontinued. Patient continues to have vomiting episodes. Oral Intake has been poor since diet advancement on 01/31, no greater than 25% of meals. Ensure Clear is on trays providing an additional 240 kcals and 8 gms protein for additional kcal and protein needs. Plans for transfer to [facility] when bed available. If patient continues to have poor po intake and vomiting episodes recommend starting TPN. Agree with diet orders. Monitoring: Monitor for diet/nutrition changes, wt, labs. Follow up in 3 days.
[2022-02-04 13:35] LABS: Glucose Point of Care 182 mg/dl (65-105)
--- NOTE | 2022-02-04 14:18 | P.PNIM_ITS ---
Progress Note: A&P Assessment and Plan (1) Bowel obstruction: Code(s): K56.609 - Unspecified intestinal obstruction, unspecified as to partial versus complete obstruction Status: Acute Assessment and Plan: patient presented with abdominal pain and no bowel movement for 5 days. * CT demonstrated large ventral hernia containing loop of fluid-filled small bowel suggestive of early or partial SBO * appreciate general surgery consultation * NG tube discontinued on 01/31 * supportive care. Analgesics antiemetics as needed * KUB 02/03 showed nonobstructive bowel gas pattern however patient has persistent nausea, vomiting, abdominal cramping. general surgery has recommended transfer to tertiary care facility for evaluation of hernia repair. * 02/03 call to [facility], not accepting patients for transfer at this time * 02/03 call to [facility], spoke with acute care surgeon Dr. Roa who accepts for transfer. Transfer center reports 5+ day wait for bed. Dr. Roa would like to speak with Dr. Jacobsen (General surgeon). Relayed contact information. * 02/04 call to [facility], will accept patient pending bed availability. Reports hopeful transfer this afternoon or tomorrow pending discharges at facility (2) Colon cancer metastasized to liver: Code(s): C18.9 - Malignant neoplasm of colon, unspecified; C78.7 - Secondary malignant neoplasm of liver and intrahepatic bile duct Status: Acute Assessment and Plan: patient is managed by Dr[facility] Kw[facility] at [facility] [place] * recently completed a round of chemotherapy on 11/19. Currently on 2 month chemo holiday * follow-up appointment scheduled in 2 weeks * patient has been seen by Oncology here (Dr. Bennett). Recommended patient be discharged with disc of CT scan to bring to his oncologist at his next appointment (3) Diabetes mellitus with hyperglycemia: Qualifiers: Diabetes mellitus group home insulin use: with oysterman use Diabetes mellitus type: type 2 Qualified Code(s): E11.65 - Type 2 diabetes mellitus with hyperglycemia; Z79.4 - [facility] (current) use of insulin Code(s): E11.65 - Type 2 diabetes mellitus with hyperglycemia Status: Acute Assessment and Plan: A1c is 7.3 * blood sugars well controlled this admission * continue Accu-Cheks, sliding scale insulin, hypoglycemic protocol (4) HTN (hypertension), malignant: Code(s): I10 - Essential (primary) hypertension Status: Acute Assessment and Plan: blood pressures have been reasonably controlled. Last BP 111/91 * continue home lisinopril-hydrochlorothiazide and metoprolol succinate (5) Hypokalemia: Code(s): E87.6 - Hypokalemia Status: Acute Assessment and Plan: Secondary to nausea/vomiting * P.o. potassium order, patient not able to tolerate * Will administer 20 mEq IV KCl Subjective Date/time seen: 02/04/22 14:18 Interval history: date of service: 02/04/2022 Anjel Grijalva is a 36-year-old male with a history of colon cancer with liver metastases s/p colectomy and chemotherapy (currently on chemo holiday for 2 months), type 2 diabetes mellitus, hyperlipidemia who is seen in follow up for bowel obstruction. He is feeling poorly today. If he is resting, his pain is about 4/10. If he has to move around his pain increases is 7/10. He states he had a really bad night last night and had severe discomfort. Today he has had a couple episodes of emesis. He was able to tolerate a lemon popsicle and has been keeping down water. He is able to get up and walk around, thoug
--- NOTE | 2022-02-04 14:18 | PM.IMPN ---
Progress Note: A&P Assessment and Plan (1) Bowel obstruction: Code(s): K56.609 - Unspecified intestinal obstruction, unspecified as to partial versus complete obstruction Status: Acute Assessment and Plan: patient presented with abdominal pain and no bowel movement for [address] demonstrated large ventral hernia containing loop of fluid-filled small bowel suggestive of early or partial SBO appreciate general surgery consultation NG tube discontinued on 01/31 supportive care. Analgesics antiemetics as needed KUB 02/03 showed nonobstructive bowel gas pattern however patient has persistent nausea, vomiting, abdominal cramping. general surgery has recommended transfer to tertiary care facility for evaluation of hernia repair. 02/03 call to [facility], not accepting patients for transfer at this time 02/03 call to [facility], spoke with acute care surgeon Dr. Roa who accepts for transfer. Transfer center reports 5+ day wait for bed. Dr. Roa would like to speak with Dr. Jacobsen (General surgeon). Relayed contact information. 02/04 call to [facility], will accept patient pending bed availability. Reports hopeful transfer this afternoon or tomorrow pending discharges at facility (2) Colon cancer metastasized to liver: Code(s): C18.9 - Malignant neoplasm of colon, unspecified; C78.7 - Secondary malignant neoplasm of liver and intrahepatic bile duct Status: Acute Assessment and Plan: patient is managed by Dr. Kwong at [facility] [place] recently completed a round of chemotherapy on 11/19. Currently on 2 month chemo holiday follow-up appointment scheduled in 2 weeks patient has been seen by Oncology here (Dr. Bennett). Recommended patient be discharged with disc of CT scan to bring to his oncologist at his next appointment (3) Diabetes mellitus with hyperglycemia: Qualifiers: Diabetes mellitus terminal operator insulin use: with terminal operator use Diabetes mellitus type: type 2 Qualified Code(s): E11.65 - Type 2 diabetes mellitus with hyperglycemia; Z79.4 - [facility] (current) use of insulin Code(s): E11.65 - Type 2 diabetes mellitus with hyperglycemia Status: Acute Assessment and Plan: A1c is 7.3 blood sugars well controlled this admission continue Accu-Cheks, sliding scale insulin, hypoglycemic protocol (4) HTN (hypertension), malignant: Code(s): I10 - Essential (primary) hypertension Status: Acute Assessment and Plan: blood pressures have been reasonably controlled. Last BP 111/91 continue home lisinopril-hydrochlorothiazide and metoprolol succinate (5) Hypokalemia: Code(s): E87.6 - Hypokalemia Status: Acute Assessment and Plan: Secondary to nausea/vomiting P.o. potassium order, patient not able to tolerate Will administer 20 mEq IV KCl Subjective Date/time seen: 02/04/22 14:18 Interval history: date of service: 02/04/2022 Anjel Grijalva is a 36-year-old male with a history of colon cancer with liver metastases s/p colectomy and chemotherapy (currently on chemo holiday for 2 months), type 2 diabetes mellitus, hyperlipidemia who is seen in follow up for bowel obstruction. He is feeling poorly today. If he is resting, his pain is about 4/10. If he has to move around his pain increases is 7/10. He states he had a really bad night last night and had severe discomfort. Today he has had a couple episodes of emesis. He was able to tolerate a lemon popsicle and has been keeping down water. He is able to get up and walk around, though this does worsen his pain. Last bowel movement was 2 days ago. He he reports he is getting around well. Hiccups resolved today. Review of Systems Review of Systems: All systems reviewed & are unremarkable except as noted in HPI and below Exam Narrative: General: Well-nourished, well-appearing 36-year-old male, sitting up in bed clutching abdomen appears unco
[2022-02-04 14:20] VITALS: BP 118/83; PULSE 98; RESP 16; TEMP 36.3; O2SAT 98
[2022-02-04] MEDS: SODIUM CHLORIDE 0.9% IV 1,000 ML 85 ML IV CONT (15:28)
[2022-02-04] MEDS: KCL 20 MEQ/SW 100 ML 100 ML 50 MEQ IVPB (15:31)
[2022-02-04 17:22] LABS: Glucose Point of Care 181 mg/dl (65-105)
[2022-02-04] MEDS: GABAPENTIN 100 MG CAPSULE PO (21:48)
[2022-02-04 22:00] VITALS: BP 117/84; PULSE 118; RESP 20; TEMP 36.7; O2SAT 100
[2022-02-05 00:16] LABS: Glucose Point of Care 138 mg/dl (65-105)
[2022-02-05] MEDS: MORPHINE SULFATE (*CRX) 2 MG/ML INJ IV PUSH ×3 (03:08→22:00)
[2022-02-05 03:22] VITALS: BP 100/70; PULSE 112; RESP 18; TEMP 36.1; O2SAT 100
[2022-02-05 04:59] LABS: Glucose Point of Care 130 mg/dl (65-105)
[2022-02-05 05:26] LABS: Anion Gap 13 mmol/L (8-16); Blood Urea Nitrogen 25 mg/dL (9-20); Calcium 9.3 mg/dL (8.4-10.2); Carbon Dioxide 28 mmol/L (22-30); Chloride 90 mmol/L (98-107); Estimated CRCL calculation 136 ml/min; Estimated Glomerular Filt Rate > 60; Glucose 137 mg/dL (65-110); Potassium 3.6 mmol/L (3.4-5.0); Sodium 131 mmol/L (137-145)
[2022-02-05 08:48] LABS: Glucose Point of Care 135 mg/dl (65-105)
--- NOTE | 2022-02-05 09:29 | P.PNIM_ITS ---
Progress Note: A&P Assessment and Plan (1) Bowel obstruction: Code(s): K56.609 - Unspecified intestinal obstruction, unspecified as to partial versus complete obstruction Status: Acute Assessment and Plan: patient presented with abdominal pain and no bowel movement for 5 days. * CT demonstrated large ventral hernia containing loop of fluid-filled small bowel suggestive of early or partial SBO * appreciate general surgery consultation * NG tube discontinued on 01/31 * supportive care. Analgesics antiemetics as needed * KUB 02/03 showed nonobstructive bowel gas pattern however patient has persistent nausea, vomiting, abdominal cramping. general surgery has recommended transfer to tertiary care facility for evaluation of hernia repair. * 02/03 call to [facility], not accepting patients for transfer at this time * 02/03 call to [facility], spoke with acute care surgeon Dr. Roa who accepts for transfer. Transfer center reports 5+ day wait for bed. Dr. Roa would like to speak with Dr. Jacobsen (General surgeon). Relayed contact information. * 02/04 call to [facility], will accept patient pending bed availability. Reports hopeful transfer this afternoon or tomorrow pending discharges at facility * 02/05 spoke with [facility], update given. Still awaiting bed. No change in patient condition. (2) Colon cancer metastasized to liver: Code(s): C18.9 - Malignant neoplasm of colon, unspecified; C78.7 - Secondary malignant neoplasm of liver and intrahepatic bile duct Status: Acute Assessment and Plan: patient is managed by Dr[facility] Kw[facility] at [facility] [place] * recently completed a round of chemotherapy on 11/19. Currently on 2 month chemo holiday * follow-up appointment scheduled in 2 weeks * patient has been seen by Oncology here (Dr. Bennett). Recommended patient be discharged with disc of CT scan to bring to his oncologist at his next appointment (3) Diabetes mellitus with hyperglycemia: Qualifiers: Diabetes mellitus type: type 2 Diabetes mellitus termite renewal inspector insulin use: with termite renewal inspector use Qualified Code(s): E11.65 - Type 2 diabetes mellitus with hyperglycemia; Z79.4 - [facility] (current) use of insulin Code(s): E11.65 - Type 2 diabetes mellitus with hyperglycemia Status: Acute Assessment and Plan: A1c is 7.3 * blood sugars well controlled this admission * continue Accu-Cheks, sliding scale insulin, hypoglycemic protocol (4) HTN (hypertension), malignant: Code(s): I10 - Essential (primary) hypertension Status: Acute Assessment and Plan: * continue home lisinopril-hydrochlorothiazide and metoprolol succinate * Blood pressure well controlled. (5) Hypokalemia: Code(s): E87.6 - Hypokalemia Status: Resolved Assessment and Plan: Secondary to nausea/vomiting * 3.6 today, resolved. Time Spent With Patient Time with patient: 15 - 25 minutes Subjective Date/time seen: 02/05/22 09:00 This pt. was examined at the bedside today in interval assessment. He is still awaiting transfer to a tertiary center to have surgery to repair his ventral hernia that is complicating his abdomen that continues to develop SBO's. He has continual hiccups in which he drinks water for that does stop the hiccups, but he then vomits the water back up. He does have abdominal pain around the hernia, but there are no signs of strangulation. Bowel sounds are absent. He has no CP, dyspnea, Urinary complaints. He has vomited multiple times this AM. Review of Systems Review of Systems: All
--- NOTE | 2022-02-05 09:29 | PM.IMPN ---
Progress Note: A&P Assessment and Plan (1) Bowel obstruction: Code(s): K56.609 - Unspecified intestinal obstruction, unspecified as to partial versus complete obstruction Status: Acute Assessment and Plan: patient presented with abdominal pain and no bowel movement for [address] demonstrated large ventral hernia containing loop of fluid-filled small bowel suggestive of early or partial SBO appreciate general surgery consultation NG tube discontinued on 01/31 supportive care. Analgesics antiemetics as needed KUB 02/03 showed nonobstructive bowel gas pattern however patient has persistent nausea, vomiting, abdominal cramping. general surgery has recommended transfer to tertiary care facility for evaluation of hernia repair. 02/03 call to [facility], not accepting patients for transfer at this time 02/03 call to [facility], spoke with acute care surgeon Dr. Roa who accepts for transfer. Transfer center reports 5+ day wait for bed. Dr. Roa would like to speak with Dr. Jacobsen (General surgeon). Relayed contact information. 02/04 call to [facility], will accept patient pending bed availability. Reports hopeful transfer this afternoon or tomorrow pending discharges at facility 02/05 spoke with [facility], update given. Still awaiting bed. No change in patient condition. (2) Colon cancer metastasized to liver: Code(s): C18.9 - Malignant neoplasm of colon, unspecified; C78.7 - Secondary malignant neoplasm of liver and intrahepatic bile duct Status: Acute Assessment and Plan: patient is managed [facility] [place] recently completed a round of chemotherapy on 11/19. Currently on 2 month chemo holiday follow-up appointment scheduled in 2 weeks patient has been seen by Oncology here (Dr. Bennett). 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 (5) Hypokalemia: Code(s): E87.6 - Hypokalemia Status: Resolved Assessment and Plan: Secondary to nausea/vomiting 3.6 today, resolved. Time Spent With Patient Time with patient: 15 - 25 minutes Subjective Date/time seen: 02/05/22 09:00 This pt. was examined at the bedside today in interval assessment. He is still awaiting transfer to a tertiary center to have surgery to repair his ventral hernia that is complicating his abdomen that continues to develop SBO's. He has continual hiccups in which he drinks water for that does stop the hiccups, but he then vomits the water back up. He does have abdominal pain around the hernia, but there are no signs of strangulation. Bowel sounds are absent. He has no CP, dyspnea, Urinary complaints. He has vomited multiple times this AM. Review of Systems Review of Systems: All systems reviewed & are unremarkable except as noted in HPI and below Exam Const: General: uncomfortable HENMT: General nose exam: Normal nares present Mouth: Yes dry mucous membranes Eyes: General: appearance normal, both eyes and all related structures Neck: Neck: supple and no JVD Lymphatic: lymphadenopathy not noted Resp: Effort & Inspection: normal respiratory effort Auscultation:
[2022-02-05 09:45] VITALS: BP 110/83; PULSE 108
[2022-02-05] MEDS: lisinopriL 10 MG TABLET PO (09:45)
[2022-02-05] MEDS: hydroCHLOROthiazide 12.5 MG CAPSULE PO (09:45)
[2022-02-05] MEDS: METOPROLOL SUCCINATE EXT REL 50 MG TABCR PO (09:45)
[2022-02-05] MEDS: PANTOPRAZOLE 40 MG TABLET PO (09:46)
[2022-02-05 11:59] LABS: Glucose Point of Care 132 mg/dl (65-105)
--- NOTE | 2022-02-05 12:43 | PM.PNGS ---
Progress Note: A&P Assessment and Plan (1) Incisional hernia with obstruction: Code(s): K43.0 - Incisional hernia with obstruction, without gangrene Status: Acute Assessment and Plan: Awaiting transfer to tertiary care facility, will advance diet as tolerated while awaiting transfer, continue to monitor. (2) Colon cancer metastasized to liver: Code(s): C18.9 - Malignant neoplasm of colon, unspecified; C78.7 - Secondary malignant neoplasm of liver and intrahepatic bile duct Status: Acute Assessment and Plan: On , pt has been seen by med oncology, await transfer for surgical oncologist Plan I have discussed the patient's case and plan of care with Dr. Jacobsen. Subjective Subjective Date/Time Seen: 02/05/22 10:43 Patient reports: no new complaints, still having pain (Comes and goes), tolerating liquids well, flatus, bowel movement (Yesterday) and afebrile Interval history: Patient reports feeling slightly better today. He reports still having abdominal pain at the site of the ventral hernia that comes and goes. He denies any abdominal pain at the time of my exam. He vomited yesterday after receiving pain medication, but has not had any more vomiting. Denies any nausea at this time. No other complaints at this time. He is refusing to wear the abdominal binder because it compresses the right side of his trunk or he has a lot of pain related to his metastatic cancer. Review of Systems Review of Systems: All systems reviewed & are unremarkable except as noted in HPI and below Exam Const: General: comfortable and no acute distress Orientation/consciousness: patient oriented x3 GI: Inspection: non-distended and visible herniation (Supraumbilical incisional hernia, soft and reducible, nontender today) GI Palp: Yes Soft to palpation, No Tenderness to palpation present (GI), No Guarding due to palpation present (GI) and No Rebound tenderness present Auscultation: normal bowel sounds Psych: Mental Status: mental status grossly normal Insight: Good insight present (Psych) Objective Data Vital Signs Vital Signs: Vital Signs - 24 hr 02/04/22 14:20 02/04/22 20:00 02/04/22 22:00 Temperature 97.3 F L 98.0 F Pulse Rate 98 118 H Respiratory Rate 16 20 Blood Pressure 118/83 117/84 Pulse Oximetry 98 100 Oxygen Delivery Room Air 02/05/22 03:22 02/05/22 09:45 02/05/22 09:45 Temperature 96.9 F L Pulse Rate 112 H 108 H 108 H Respiratory Rate 18 Blood Pressure 100/70 110/83 Pulse Oximetry 100 Oxygen Delivery Intake/Output Intake/Output: Intake & Output 02/02/22 02/03/22 02/04/22 02/05/22 23:59 23:59 23:59 23:59 Intake Total 830 1010 1650 Output Total 1500 600 325 425 Balance -731 757 9007 -425 Meds/Results Medications: Active Medications Generic Name Dose Route Start Last Admin Trade Name Freq PRN Reason Stop Dose Admin Acetaminophen 650 mg 01/31/22 15:43 Acetaminophen 325 Mg Tablet PO Q4H PRN Headache Hydrocodone Bitart/Acetaminophen 1 tab 02/01/22 12:52 02/04/22 04:17 Hydrocodone/Acetaminophen (*Crx) 7.5-325 Mg Tablet PO 1 tab Q6H PRN Administration Pain Rated 7-10 Bisacodyl 10 mg 02/01/22 12:54 02/04/22 08:22 Bisacodyl 10 Mg Suppository RECTAL 10 mg QAM PRN Administration Constipation Dextrose 12.5 gm 01/30/22 14:31 Dextrose 50% 25 Gm/50 Ml Syringe IV PUSH PRN PRN Hypoglycemia Protocol Gabapentin 100 mg 01/31/22 21:00 02/04/22 21:48 Gabapentin 100 Mg Capsule PO 100 mg QHS IRLANDA Administration Glucagon 1 mg 01/30/22 14:31 Glucagon For Inj 1 Mg Vial IM PRN PRN Hypoglycemia Protocol Glucose 15 gm 01/30/22 14:31 Glucose Oral Gel 15 Gm Of Glucse In 37.5 Gm Tube PO PRN PRN Hypoglycemia Protocol Heparin Sodium (Beef Lung) 50 units 02/05/22 09:00 02/05/22 09:50 Heparin Flush 50 Units/5 Ml Syringe IV PUSH N
--- NOTE | 2022-02-05 12:50 | PC.NURSE ---
On 02/05/22, the student, [Lennie Roach], provided care and completed [facility] documentation on this patient. I have reviewed the student's documentation and agree with the findings.
[2022-02-05] MEDS: HYDROcodone/acetaminophen (*CRX) 7.5-325 MG TABLET 1 TAB PO (13:39)
[2022-02-05] MEDS: CENTRAL LINE FLUSH 10 ML IV PUSH ×2 (13:40→22:12)
[2022-02-05 14:06] VITALS: BP 122/87; PULSE 104; RESP 20; TEMP 36.6; O2SAT 99
[2022-02-05 17:02] LABS: Glucose Point of Care 108 mg/dl (65-105)
[2022-02-05] MEDS: SODIUM CHLORIDE 0.9% IV 1,000 ML 85 ML IV CONT (18:01)
[2022-02-05] MEDS: PSYLLIUM POWDER PACKET 1 PACKET PO (18:02)
[2022-02-05 21:21] VITALS: BP 127/95; PULSE 100; RESP 17; TEMP 36.6; O2SAT 100
[2022-02-06 01:04] LABS: Glucose Point of Care 98 mg/dl (65-105)
[2022-02-06 01:04] LABS: Glucose Point of Care 103 mg/dl (65-105)
[2022-02-06] MEDS: SODIUM CHLORIDE 0.9% IV 1,000 ML 85 ML IV CONT ×2 (05:20→19:50)
[2022-02-06] MEDS: CENTRAL LINE FLUSH 10 ML IV PUSH ×3 (05:21→22:09)
[2022-02-06 05:27] VITALS: BP 136/92; PULSE 102; RESP 18; TEMP 37; O2SAT 100
[2022-02-06 06:31] LABS: Basophils Percent Auto 0.6 % (0.2-1.2); Eosinophils Absolute Auto 0.3 K/mm3 (0-0.3); Hematocrit 36.2 % (42.0-52.0); Hemoglobin 12.2 g/dL (14.0-18.0); Immature Granulocyte Absolute 0.04 K/mm3 (0.00-0.031); Immature Granulocyte Percent A 0.6 % (0-0.5); Lymphocytes Percent Auto 19.3 % (18.3-44.2); Mean Corpuscular HGB Conc 33.7 g/dl (32-36); Mean Corpuscular Hemoglobin 29.7 pg (26-34); Mean Corpuscular Volume 88.1 fl (80-100); Mean Platelet Volume 10.1 fl (7.4-10.4); Monocytes Absolute Auto 0.6 K/mm3 (0.1-0.6); Monocytes Percent Auto 10.1 % (2.6-8.5); Neutrophils Absolute Auto 4.1 K/mm3 (1.3-6.7); Neutrophils Percent Auto 65.4 % (45.5-73.1); Platelet Count Result 193 k/mm3 (150-375); Red Blood Count 4.11 M/mm3 (4.6-6.20); Red Cell Distribution Width 13.1 % (11.5-14.5); White Blood Count 6.2 K/mm3 (4.5-10.0)
[2022-02-06 06:52] LABS: Glucose Point of Care 83 mg/dl (65-105)
[2022-02-06 07:01] LABS: Alanine Aminotransferase 34 U/L (6-50); Albumin Level 3.5 g/dL (3.5-5.1); Alkaline Phosphatase 84 U/L (38-126); Anion Gap 13 mmol/L (8-16); Aspartate Amino Transferase 37 U/L (17-59); Bilirubin,Total 1.2 mg/dL (0.2-1.3); Blood Urea Nitrogen 14 mg/dL (9-20); Calcium 8.8 mg/dL (8.4-10.2); Carbon Dioxide 24 mmol/L (22-30); Chloride 95 mmol/L (98-107); Estimated CRCL calculation 156 ml/min; Estimated Glomerular Filt Rate > 60; Glucose 91 mg/dL (65-110); Magnesium 1.8 mg/dL (1.6-2.3); Potassium 3.4 mmol/L (3.4-5.0); Sodium 132 mmol/L (137-145)
[2022-02-06] MEDS: MORPHINE SULFATE (*CRX) 2 MG/ML INJ IV PUSH ×4 (08:27→23:53)
[2022-02-06 08:58] VITALS: PULSE 91
[2022-02-06] MEDS: hydroCHLOROthiazide 12.5 MG CAPSULE PO (08:58)
[2022-02-06] MEDS: METOPROLOL SUCCINATE EXT REL 50 MG TABCR PO (08:58)
[2022-02-06] MEDS: lisinopriL 10 MG TABLET PO (08:58)
[2022-02-06] MEDS: PANTOPRAZOLE 40 MG TABLET PO (08:58)
[2022-02-06 09:19] LABS: Glucose Point of Care 79 mg/dl (65-105)
--- NOTE | 2022-02-06 12:15 | PM.PNGS ---
Progress Note: A&P Assessment and Plan (1) Incisional hernia with obstruction: Code(s): K43.0 - Incisional hernia with obstruction, without gangrene Status: Acute Assessment and Plan: Continues to have issues with vomiting and unable to tolerate his diet. Unclear if the vomiting is associated with the pain medication or another cause. Repeat CT scan this morning still showed a partial small bowel obstruction secondary to the ventral hernia. Will get a Gastrografin small bowel follow through today to further assess for an obstruction. Still awaiting transfer to tertiary care facility. Hospitalist and nursing trying to contact [facility] and [facility] regarding bed placement. (2) Colon cancer metastasized to liver: Code(s): C18.9 - Malignant neoplasm of colon, unspecified; C78.7 - Secondary malignant neoplasm of liver and intrahepatic bile duct Status: Acute Assessment and Plan: On , pt has been seen by med oncology, await transfer for surgical oncologist Plan I have discussed the patient's case and plan of care with Dr. Jacobsen. Subjective Subjective Date/Time Seen: 02/06/22 10:25 Patient reports: flatus, no bowel movement and afebrile Interval history: Patient seen and examined. Still feeling about the same as yesterday. Had one episode of small amount of emesis last night after drinking metamucil. No nausea or vomiting this morning. Still reports some mild intermittent pain at the hernia site but now feels it is just soreness. His pain is more located in the right upper abdomen where he deals with chronic pain from his cancer. This feels like the typical pain he deals with. He is passing gas but has not had a BM in 2 days and reports the last one was very small. Still awaiting bed placement at [facility] or [facility]. Review of Systems Review of Systems: All systems reviewed & are unremarkable except as noted in HPI and below Exam Const: General: comfortable and no acute distress Orientation/consciousness: patient oriented x3 GI: Inspection: non-distended and visible herniation (Supraumbilical incisional hernia, soft and reducible, nontender today) GI Palp: Yes Soft to palpation, No Tenderness to palpation present (GI), No Guarding due to palpation present (GI) and No Rebound tenderness present Auscultation: Hypoactive bowel sounds present Extrem: General: normal to inspection and no edema Psych: Mental Status: mental status grossly normal Insight: Good insight present (Psych) Objective Data Vital Signs Vital Signs: Vital Signs - 24 hr 02/05/22 14:06 02/05/22 21:21 02/05/22 22:00 Temperature 97.8 F 97.9 F Pulse Rate 104 H 100 Respiratory Rate 20 17 Blood Pressure 122/87 127/95 H Pulse Oximetry 99 100 Oxygen Delivery Room Air 02/06/22 05:27 02/06/22 08:58 02/06/22 08:00 Temperature 98.6 F Pulse Rate 102 H 91 Respiratory Rate 18 Blood Pressure 136/92 H Pulse Oximetry 100 Oxygen Delivery Room Air Intake/Output Intake/Output: Intake & Output 02/03/22 02/04/22 02/05/22 02/06/22 23:59 23:59 23:59 23:59 Intake Total 1010 1650 2580 1240 Output Total 191 299 3694 300 Balance 410 1325 1255 940 Meds/Results Medications: Active Medications Generic Name Dose Route Start Last Admin Trade Name Freq PRN Reason Stop Dose Admin Acetaminophen 650 mg 01/31/22 15:43 Acetaminophen 325 Mg Tablet PO Q4H PRN Headache Hydrocodone Bitart/Acetaminophen 1 tab 02/01/22 12:52 02/05/22 13:39 Hydrocodone/Acetaminophen (*Crx) 7.5-325 Mg Tablet PO 1 tab Q6H PRN Administration Pain Rated 7-10 Bisacodyl 10 mg 02/01/22 12:54 02/04/22 08:22 Bisacodyl 10 Mg Suppository RECTAL 10 mg QAM PRN Administration Constipation Dextrose 12.5 gm 01/30/22 14:31 Dextrose 50% 25 Gm/50 Ml Syringe IV PUSH PRN PRN Hypoglycemia Protocol Gabapentin 100 mg 01/31/22 21:00 02/05/22 21:58 Gabapentin 100 Mg Capsule PO
[2022-02-06 12:24] LABS: Glucose Point of Care 81 mg/dl (65-105)
--- NOTE | 2022-02-06 12:52 | P.PNIM_ITS ---
Progress Note: A&P Assessment and Plan (1) Bowel obstruction: Code(s): K56.609 - Unspecified intestinal obstruction, unspecified as to partial versus complete obstruction Status: Acute Assessment and Plan: patient presented with abdominal pain and no bowel movement for 5 days. * CT demonstrated large ventral hernia containing loop of fluid-filled small bowel suggestive of early or partial SBO * appreciate general surgery consultation * NG tube discontinued on 01/31 * supportive care. Analgesics antiemetics as needed * KUB 02/03 showed nonobstructive bowel gas pattern however patient has persistent nausea, vomiting, abdominal cramping. general surgery has recommended transfer to tertiary care facility for evaluation of hernia repair. * 02/03 call to [facility], not accepting patients for transfer at this time * 02/03 call to [facility], spoke with acute care surgeon Dr. Roa who accepts for transfer. Transfer center reports 5+ day wait for bed. Dr. Roa would like to speak with Dr. Jacobsen (General surgeon). Relayed contact information. * 02/04 call to [facility], will accept patient pending bed availability. Reports hopeful transfer this afternoon or tomorrow pending discharges at facility * 02/05 spoke with [facility], update given. Still awaiting bed. No change in patient condition. * 02/06 Pt. remains on wait lists at outside facilities. CT performed today suspicious for possible developing SBO again. SBFT ordered by Gen Cerda. Awaiting results. Continuing to treat pain. (2) Colon cancer metastasized to liver: Code(s): C18.9 - Malignant neoplasm of colon, unspecified; C78.7 - Secondary malignant neoplasm of liver and intrahepatic bile duct Status: Acute Assessment and Plan: patient is managed by Dr[facility] [place] * recently completed a round of chemotherapy on 11/19. Currently on 2 month chemo holiday * follow-up appointment scheduled in 2 weeks * patient has been seen by Oncology here (Dr. Bennett). 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 (5) Hypokalemia: Code(s): E87.6 - Hypokalemia Status: Resolved Assessment and Plan: Secondary to nausea/vomiting * 3.4 today, resolved. Time Spent With Patient Time with patient: 15 - 25 minutes Subjective Date/time seen: 02/06/22 12:52 This patient was evaluated at the bedside today in interval assessment. We are still awaiting an available bed at tertiary center, either [facility] or [facility]. Patient continued to have emesis over the evening hours, as much as 400 ml. In addition he continued to have pain. As patient continued to vomit, and his physical exam today I do not hear any bowel sounds. Repeat CT scan was ordered this morning and nahun
--- NOTE | 2022-02-06 12:52 | PM.IMPN ---
Progress Note: A&P Assessment and Plan (1) Bowel obstruction: Code(s): K56.609 - Unspecified intestinal obstruction, unspecified as to partial versus complete obstruction Status: Acute Assessment and Plan: patient presented with abdominal pain and no bowel movement for [address] demonstrated large ventral hernia containing loop of fluid-filled small bowel suggestive of early or partial SBO appreciate general surgery consultation NG tube discontinued on 01/31 supportive care. Analgesics antiemetics as needed KUB 02/03 showed nonobstructive bowel gas pattern however patient has persistent nausea, vomiting, abdominal cramping. general surgery has recommended transfer to tertiary care facility for evaluation of hernia repair. 02/03 call to [facility], not accepting patients for transfer at this time 02/03 call to [facility], spoke with acute care surgeon Dr. Roa who accepts for transfer. Transfer center reports 5+ day wait for bed. Dr. Roa would like to speak with Dr. Jacobsen (General surgeon). Relayed contact information. 02/04 call to [facility], will accept patient pending bed availability. Reports hopeful transfer this afternoon or tomorrow pending discharges at facility 02/05 spoke with [facility], update given. Still awaiting bed. No change in patient condition. 02/06 Pt. remains on wait lists at outside facilities. CT performed today suspicious for possible developing SBO again. SBFT ordered by Gen Cerda. Awaiting results. Continuing to treat pain. (2) Colon cancer metastasized to liver: Code(s): C18.9 - Malignant neoplasm of colon, unspecified; C78.7 - Secondary malignant neoplasm of liver and intrahepatic bile duct Status: Acute Assessment and Plan: patient is managed by Dr. Kwong at [facility] [place] recently completed a round of chemotherapy on 11/19. Currently on 2 month chemo holiday follow-up appointment scheduled in 2 weeks patient has been seen by Oncology here (Dr. Bennett). 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 (5) Hypokalemia: Code(s): E87.6 - Hypokalemia Status: Resolved Assessment and Plan: Secondary to nausea/vomiting 3.4 today, resolved. Time Spent With Patient Time with patient: 15 - 25 minutes Subjective Date/time seen: 02/06/22 12:52 This patient was evaluated at the bedside today in interval assessment. We are still awaiting an available bed at tertiary center, either [facility] or [facility]. Patient continued to have emesis over the evening hours, as much as 400 ml. In addition he continued to have pain. As patient continued to vomit, and his physical exam today I do not hear any bowel sounds. Repeat CT scan was ordered this morning and demonstrates midline ventral abdominal wall hernia with small bowel herniation and partial obstruction including proximal small-bowel dilatation up to 4 cm diameter and multiple air-fluid levels. This is in addition to the chronic issues of multiple hepatic masses that we were aware of and postoperative changes of the small and large bowel that we were aware of. These findings prompted me
[2022-02-06 14:40] VITALS: BP 139/95; PULSE 105; RESP 16; TEMP 36.4; O2SAT 100
[2022-02-06] MEDS: AMINO ACIDS 4.25%/D5W/LYTES/CA 2,000 ML 80 ML IV CONT (17:34)
[2022-02-06 18:18] LABS: Glucose Point of Care 96 mg/dl (65-105)
[2022-02-06 19:31] VITALS: BP 142/99; PULSE 102; RESP 20; TEMP 36.6; O2SAT 100
--- NOTE | 2022-02-06 19:38 | P.PNCROSS_ITS ---
Event Note Event Note Event Note: I spoke with Dr peralta from [facility] in [facility] concerni ng a transfer to [facility] in [facility] and the surgeon Dr Edwina Peralta stated that he would not be able to assist the patient as we have a surgical crew here who not operating on the patient and Dr peralta stated that he would not perform surgery on the gastric outlet obstruction. the surgeon recommended a pallative gi. the surgeon also recommended that the patient be seen by the gi specialist to see if gi here can manage the patient with gastric outlet obstruction. [facility] will call back tomorrow to determine if there is anything else they can do.
[2022-02-06] MEDS: chlorproMAZINE HCL INJ 50 MG/2 ML AMP 25 MG IM (23:53)
[2022-02-07 03:52] VITALS: BP 100/63; PULSE 114; RESP 18; TEMP 36.6; O2SAT 97
[2022-02-07] MEDS: CENTRAL LINE FLUSH 10 ML IV PUSH ×2 (04:08→14:48)
[2022-02-07 04:34] LABS: Glucose Point of Care 170 mg/dl (65-105)
[2022-02-07] MEDS: SODIUM CHLORIDE 0.9% IV 1,000 ML 85 ML IV CONT (05:13)
[2022-02-07 05:52] LABS: Basophils Absolute Auto 0.1 K/mm3 (0.0-0.1); Basophils Percent Auto 0.6 % (0.2-1.2); Eosinophils Percent Auto 0.3 % (0-4.4); Hematocrit 39.3 % (42.0-52.0); Hemoglobin 13.3 g/dL (14.0-18.0); Immature Granulocyte Absolute 0.02 K/mm3 (0.00-0.031); Immature Granulocyte Percent A 0.2 % (0-0.5); Lymphocytes Absolute Auto 0.43 K/mm3 (0.9-3.2); Mean Corpuscular HGB Conc 33.8 g/dl (32-36); Mean Corpuscular Hemoglobin 29.6 pg (26-34); Mean Corpuscular Volume 87.3 fl (80-100); Mean Platelet Volume 9.8 fl (7.4-10.4); Monocytes Absolute Auto 0.6 K/mm3 (0.1-0.6); Monocytes Percent Auto 5.8 % (2.6-8.5); Neutrophils Absolute Auto 9.7 K/mm3 (1.3-6.7); Neutrophils Percent Auto 89.1 % (45.5-73.1); Platelet Count Result 166 k/mm3 (150-375); Red Cell Distribution Width 13.1 % (11.5-14.5); White Blood Count 10.9 K/mm3 (4.5-10.0)
[2022-02-07 06:04] LABS: Alanine Aminotransferase 34 U/L (6-50); Albumin Level 3.5 g/dL (3.5-5.1); Alkaline Phosphatase 78 U/L (38-126); Anion Gap 13 mmol/L (8-16); Aspartate Amino Transferase 35 U/L (17-59); Bilirubin,Total 1.2 mg/dL (0.2-1.3); Blood Urea Nitrogen 16 mg/dL (9-20); Calcium 9.1 mg/dL (8.4-10.2); Carbon Dioxide 23 mmol/L (22-30); Chloride 96 mmol/L (98-107); Estimated CRCL calculation 156 ml/min; Estimated Glomerular Filt Rate > 60; Glucose 191 mg/dL (65-110); Phosphorus 3.1 mg/dL (2.5-4.5); Potassium 3.6 mmol/L (3.4-5.0); Sodium 132 mmol/L (137-145)
[2022-02-07] MEDS: MORPHINE SULFATE (*CRX) 2 MG/ML INJ IV PUSH ×2 (06:28→11:37)
[2022-02-07 09:16] LABS: Glucose Point of Care 205 mg/dl (65-105)
[2022-02-07] MEDS: INSULIN ASPART (*BKC) 100 UNITS/ML SUB-Q ×2 (09:18→12:09)
[2022-02-07] MEDS: FAT EMULSIONS IV 20% 250 ML 20.83 ML IVPB (10:09)
--- NOTE | 2022-02-07 10:41 | PCNFU ---
Nutrition Follow-Up Complete: Inadequate energy intake related to diet orders and altered GI function as evidenced by NPO status with bowel obstruction Goal: Meet estimated needs Patient has limited progress towards. Pt current nutrition is PPN. Last recorded weight is 89.9 kg, down from 95 kg on admit. Bowel Motility:+BM reported 02/03 Labs Reviewed:Glu 191, Cr 0.6,Na 132, Hct 39.3,Hgb 13.3 Meds Noted:Miralax,Protonix, Dulcolax suppository, Toprol, Morphine Sulfate, Haverstraw, Clinimix E 4.25/5 at 80 ml/hr with 250 ml 205 Lipid Emulsion. Skin: WNL Additional Notes: Patient seen today for nutrition follow up. Gastric Outlet Obstruction noted on SBFT. Patient is current with PPN providing 1153 kcals and 82 gms protein, meeting 58% kcal needs and 100% protein. Agree with diet orders. Monitor for diet/nutrition changes, wt, labs. Follow up every Thursday and Thursday.
[2022-02-07 11:23] VITALS: PULSE 115
[2022-02-07] MEDS: METOPROLOL TARTRATE 25 MG TABLET FEED TUBE (11:23)
[2022-02-07] MEDS: hydroCHLOROthiazide 12.5 MG CAPSULE FEED TUBE (11:24)
[2022-02-07] MEDS: PANTOPRAZOLE SODIUM IV 40 MG VIAL IV PUSH (11:25)
[2022-02-07] MEDS: lisinopriL 10 MG TABLET FEED TUBE (11:25)
[2022-02-07 12:08] LABS: Glucose Point of Care 207 mg/dl (65-105)
[2022-02-07 14:00] VITALS: BP 95/66; PULSE 105; RESP 18; TEMP 36.4; O2SAT 98
--- NOTE | 2022-02-07 14:05 | PM.TDS ---
Transfer Discharge Sum: Prov Provider Date of admission: 01/30/22 10:41 Primary care physician: Fawn Reina MD Admitting clinician: Vaishali Samuel DO Attending physician on admission: Vaishali Samuel Consults: 01/30/22 Consult to Physician Routine Comment: Consulting Provider: calliope player/MD group to consult: gi Reason for consultation: coffee ground drainage from ng Has provider been notified: No Consult to Physician Routine Comment: L/M on Cell VM for Dr Day @ 14:37(TH,US) Consulting Provider: Trip Bennett calliope player/MD group to consult: Dr. Bennett Reason for consultation: Colon cancer Has provider been notified: Yes 01/30/22 10:43 Consult to Physician Routine Comment: Spoke w/ @1436 01/31 / Consulting Provider: Alfred Forbes calliope player/MD group to consult: Reason for consultation: Bowel obstruction Has provider been notified: Yes 02/06/22 16:25 Consult to Dietitian Routine Reason for Consult:: ppn Attending physician on discharge: Kavita Cruz Discharging clinician: Kavita Cruz Anticipated date of transfer: 02/07/22 Receiving physician/facility: [facility] DS: Admitting Diagnosis Discharge Date 02/07/2022 Admitting Diagnosis Constipation with abdominal pain for 5 days DS: Discharge Diagnosis Discharge Diagnosis (1) Bowel obstruction: Code(s): K56.609 - Unspecified intestinal obstruction, unspecified as to partial versus complete obstruction Status: Acute Assessment and Plan: patient presented with abdominal pain and no bowel movement for [address] demonstrated large ventral hernia containing loop of fluid-filled small bowel suggestive of early or partial SBO appreciate general surgery consultation NG tube discontinued on 01/31 supportive care. Analgesics antiemetics as needed KUB 02/03 showed nonobstructive bowel gas pattern however patient has persistent nausea, vomiting, abdominal cramping. general surgery has recommended transfer to tertiary care facility for evaluation of hernia repair. 02/03 call to [facility], not accepting patients for transfer at this time 02/03 call to [facility], spoke with acute care surgeon Dr. Roa who accepts for transfer. Transfer center reports 5+ day wait for bed. Dr. Roa would like to speak with Dr. Jacobsen (General surgeon). Relayed contact information. 02/04 call to [facility], will accept patient pending bed availability. Reports hopeful transfer this afternoon or tomorrow pending discharges at facility 02/05 spoke with [facility], update given. Still awaiting bed. No change in patient condition. 02/06 Pt. remains on wait lists at outside facilities. CT performed today suspicious for possible developing SBO again. SBFT ordered by Gen Cerda. Awaiting results. Continuing to treat pain. 02/07 small-bowel follow-through from yesterday was aborted after 1 hour as patient had no emptying from the stomach during exam. Patient with complete gastric outlet obstruction. Surgery re evaluates. Decision made to replace NG tube to suction as well as monitor as subsequent films has indicated patient does again have small-bowel obstruction with loop of bowel prolapse into the large ventral hernia. PPN with lipids ordered for patient at this time. (2) Colon cancer metastasized to liver: Code(s): C18.9 - Malignant neoplasm of colon, unspecified; C78.7 - Secondary malignant neoplasm of liver and intrahepatic bile duct Status: Acute Assessment and Plan: patient is managed by [facility] [place] recently completed a round of chemotherapy on 11/19. Currently on 2 month chemo holiday follow-up appointment scheduled in 2 weeks patient has been seen by Oncology here (Dr. Bennett). Recommended patient be discharged with disc of CT scan to bring to his oncologist at his next appointment 02/07: Again has attempted to contact Dr. Kwong at [facility] of
--- NOTE | 2022-02-07 14:10 | PM.PNGS ---
Progress Note: A&P Assessment and Plan (1) Gastric outlet obstruction: Code(s): K31.1 - Adult hypertrophic pyloric stenosis Status: Acute Assessment and Plan: likely secondary to compression from metastatic dz, will need transfer to tertiary care facility for further workup and treatment (2) Incisional hernia with obstruction: Code(s): K43.0 - Incisional hernia with obstruction, without gangrene Status: Acute Assessment and Plan: reduced, no acute issues (3) Colon cancer metastasized to liver: Code(s): C18.9 - Malignant neoplasm of colon, unspecified; C78.7 - Secondary malignant neoplasm of liver and intrahepatic bile duct Status: Acute Assessment and Plan: see above Subjective Subjective Date/Time Seen: 02/07/22 14:10 no acute issues, still feels somewhat full, bloated Review of Systems Review of Systems: All systems reviewed & are unremarkable except as noted in HPI and below Exam Const: General: cooperative, comfortable and no acute distress Resp: Auscultation: clear to auscultation bilaterally Cardio: Rate: regular rate Rhythm: regular rhythm GI: Inspection: normal to inspection, distended, incision and visible herniation GI Palp: Yes abdominal tenderness, No Firmness to palpation present (GI), Yes Tenderness to palpation present (GI), No Guarding due to palpation present (GI), No Rigid due to palpation and Yes Hernia present Objective Data Vital Signs Vital Signs: Vital Signs - 24 hr 02/06/22 14:40 02/06/22 19:31 02/07/22 03:52 Temperature 36.4 C 36.6 C 36.6 C Pulse Rate 105 H 102 H 114 H Respiratory Rate 16 20 18 Blood Pressure 139/95 H 142/99 H 100/63 Pulse Oximetry 100 100 97 02/07/22 11:23 Temperature Pulse Rate 115 H Respiratory Rate Blood Pressure Pulse Oximetry Intake/Output Intake/Output: Intake & Output 02/04/22 02/05/22 02/06/22 02/07/22 23:59 23:59 23:59 23:59 Intake Total 1650 2580 2660 1000 Output Total 325 1325 1200 1300 Balance 1325 1255 1460 -300 Meds/Results Medications: Active Medications Generic Name Dose Route Start Last Admin Trade Name Freq PRN Reason Stop Dose Admin Acetaminophen 650 mg 02/07/22 09:42 Acetaminophen Elixir 325 Mg/10.15 Ml Udc FEED TUBE Q4H PRN Headache Hydrocodone Bitart/Acetaminophen 1 tab 02/07/22 10:39 Hydrocodone/Acetaminophen (*Crx) 7.5-325 Mg Tablet FEED TUBE Q6H PRN Pain Rated 7-10 Bisacodyl 10 mg 02/01/22 12:54 02/04/22 08:22 Bisacodyl 10 Mg Suppository RECTAL 10 mg QAM PRN Administration Constipation Chlorpromazine HCl 25 mg 02/06/22 22:02 02/06/22 23:53 Chlorpromazine Hcl Inj 50 Mg/2 Ml Amp IM 25 mg Q6H PRN Administration Hiccups Dextrose 12.5 gm 01/30/22 14:31 Dextrose 50% 25 Gm/50 Ml Syringe IV PUSH PRN PRN Hypoglycemia Protocol Gabapentin 100 mg 02/07/22 21:00 Gabapentin 100 Mg Capsule FEED TUBE QHS IRLANDA Glucagon 1 mg 01/30/22 14:31 Glucagon For Inj 1 Mg Vial IM PRN PRN Hypoglycemia Protocol Glucose 15 gm 01/30/22 14:31 Glucose Oral Gel 15 Gm Of Glucse In 37.5 Gm Tube PO PRN PRN Hypoglycemia Protocol Heparin Sodium (Beef Lung) 50 units 02/05/22 09:00 02/07/22 07:25 Heparin Flush 50 Units/5 Ml Syringe IV PUSH Not Given QAM IRLANDA Heparin Sodium (Beef Lung) 50 units 02/05/22 06:51 Heparin Flush 50 Units/5 Ml Syringe IV PUSH PRN PRN after intermittent infusion Heparin Sodium (Beef Lung) 50 units 02/05/22 06:51 Heparin Flush 50 Units/5 Ml Syringe IV PUSH PRN PRN after blood draws Heparin Sodium (Porcine) 500 units 02/05/22 06:51 Heparin Sodium Lock Flush 500 Units/5 Ml Syringe IV PUSH PRN PRN see comments below Hydralazine HCl 10 mg 01/30/22 14:36 01/30/22 18:06 Hydralazine Hcl 20 Mg/Ml Vial IV PUSH 10 mg Q8H PRN Administration Blood Pressure -
--- NOTE | 2022-02-07 15:31 | PC.NURSE ---
Report given to Mónica FLORES at [facility]. Patient to go to room 7342 after check in at ER per their standards.
[2022-02-07 15:34] LABS: EDCOVIDSCREEN Negative (Negative)
[2022-02-07 16:27] LABS: Triglycerides 94 mg/dL (<150)
[2022-02-07 17:33] LABS: Glucose Point of Care 154 mg/dl (65-105)
[2022-02-07 18:17] LABS: Glucose Point of Care 162 mg/dl (65-105)
== END 2022-02-07 18:49 | disposition short-term general hospital (02) | DRG 394 ==
LOC: ANHED 10:41 → ANH2MED 11:01
PROVIDERS: Emergency Medicine; Nurse Practitioner; Physician Assistant; Admitting Provider Student in an Organized Health Care Education/Training Program; Emergency Provider Emergency Medicine; PCP Family Medicine; Visit Provider Nurse Practitioner Adult Health
DX: K43.0 Incisional hernia with obstruction, without gangrene (principal); C18.8 Malignant neoplasm of overlapping sites of colon; K31.1 Adult hypertrophic pyloric stenosis; C78.7 Secondary malignant neoplasm of liver and intrahepatic bile duct; C78.5 Secondary malignant neoplasm of large intestine and rectum; C79.2 Secondary malignant neoplasm of skin; C79.89 Secondary malignant neoplasm of other specified sites; G89.3 Neoplasm related pain (acute) (chronic); E11.65 Type 2 diabetes mellitus with hyperglycemia; E78.2 Mixed hyperlipidemia; I10 Essential (primary) hypertension; E87.6 Hypokalemia; Z20.822 Contact with and (suspected) exposure to COVID-19; Z79.4 Long term (current) use of insulin; Z91.14 Patient's other noncompliance with medication regimen; Z95.828 Presence of other vascular implants and grafts; Z98.890 Other specified postprocedural states
CPT/HCPCS: 36415; 74018; 74019; 74176; 74177; 74250; 80048; 80053; 81001; 82274; 82728; 82948; 83036; 83605; 83615; 83690; 83735; 84100; 84443; 84478; 85014; 85018; 85025; 85027; 87426; 96365; 96375; 99285; A9270; C9113; C9803; J0131; J0360; J1170; J1815; J2270; J2405; J3230; J3480; J7030; Q9967